=== PATIENT | female | born 1955 | race Caucasian/White ===

== ENCOUNTER 2016-11-19 08:30 | Inpatient (IN) | payer MEDICARE, OTHER ==
[2016-11-19] VITALS (19 sets, daily range): BP systolic 78–123; BP diastolic 46–59; PULSE 69–111; RESP 14–33; TEMP 102.2–103.7; O2SAT 91–100
[~2016-11-19] VITALS: Ht 162.6 cm; Wt 88.3 kg
[~2016-11-19 08:30] MED LIST: CRES20TA PO; DILA2INJ IT; HYDR-2768 PO; LEVO137T2 PO; LEXA20TA PO; LYRI200C PO; MILN100 PO; MSIR15 PO; MULT1CHW PO; PROV200T11 PO; VALI10TA PO
--- NOTE | 2016-11-19 08:41 | PD ---
HPI Chief Complaint: altered mental status Time Seen by Provider: 08:32 Travel History International Travel<30 days: No Contact w/Intl Traveler<30days: No Traveled to known affect area: No History of Present Illness HPI 61-year-old female with history of chronic pain, pain pump, recent pneumonia, otherwise unknown medical history, presents to the ER today brought in by EMS because her states that he woke up this morning finding her disoriented , and when EMS got there, she was given Narcan due to pain pump, they states that her GCS improved slightly but otherwise, she was still fairly disoriented. Patient is not able to give me any further history. Patient's states that she was admitted to [facility] 3 weeks ago and had been admitted for 4 days for pneumonia. Modifying Factors: None Associated Signs & Symptoms: Altered mental status Risk Factors: On pain pump, recent pneumonia PFSH Past Medical History Cancer: No Cardiovascular Problems: No Diabetes: No Endocrine: Yes Genitourinary: No Hepatitis: No Hiatal Hernia: No Immune Disorder: Yes (FIBROMYALGIA) Musculoskeletal: Yes (FIBROMYALGIA, ARTHRITIS) Neurologic: Yes (NEUROPATHY HANDS/ FEET) Psychiatric: Yes (ANXIETY) Respiratory: No Thyroid Disease: Yes Past Surgical History Abdominal Surgery: Yes (LAP ANTOLIN, LAP BAND) AICD: No Body Medical Devices: PAIN PUMP, LAP BAND PORT Joint Replacement: No Pacemaker: No Social History Tobacco Use: No Substance Use: No Allergies-Medications (Allergen,Severity, Reaction): Coded Allergies: Sulfa (Unverified Allergy, Severe, HIVES, 04/11/15) Adhesives (Verified Allergy, Intermediate, Rash, 11/19/16) TEGADERM Keflex (Verified Allergy, Intermediate, Itching, 11/19/16) Reported Meds & Prescriptions Reported Meds & Active Scripts Active Reported Dilaudid Liq (Hydromorphone HCl) 1 Mg/Ml Liq 1 Mg PO Q4H PRN Dilaudid Liq (Hydromorphone HCl) 1 Mg/Ml Liq 1 Mg PO Q4H PRN Lexapro (Escitalopram Oxalate) 20 Mg Tab 20 Mg PO DAILY Torsemide 20 Mg Tab 20 Mg PO BID Diazepam 10 Mg Tab 10 Mg PO TID PRN Crestor (Rosuvastatin Calcium) 20 Mg Tab 20 Mg PO DAILY Movantik (Naloxegol) 12.5 Mg Tab 12.5 Mg PO DAILY Levothyroxine (Levothyroxine Sodium) 150 Mcg Tab 150 Mcg PO DAILY Modafinil 200 Mg Tab 200 Mg PO BID Lyrica (Pregabalin) 200 Mg Cap 200 Mg PO BID Review of Systems ROS Limitations: Altered Mental Status Physical Exam Narrative GENERAL: Well-nourished, well-developed middle age white female patient who is disoriented, lethargic, unable to give further history. SKIN: Warm and dry. HEAD: Normocephalic. EYES: No scleral icterus. No injection or drainage. Pupils are equal, round, large, and reactive to light bilaterally. NECK: Supple, trachea midline. CARDIOVASCULAR: Regular rate and rhythm without murmurs, gallops, or rubs. RESPIRATORY: Breath sounds equal bilaterally. No accessory muscle use. No crackles, wheezes, or rhonchi. GASTROINTESTINAL: Abdomen soft, non-tender, nondistended. MUSCULOSKELETAL: No cyanosis, or edema. BACK: Nontender without obvious deformity. No CVA tenderness. Neuro: Lethargic, disoriented, not able to follow directions or answer any questions currently. Data Data Last Documented VS Vital Signs Date Time Temp Pulse Resp B/P Pulse Ox O2 Delivery O2 Flow Rate FiO2 11/19/16 11:00 89 21 103/51 98 Non-Rebreather 15 11/19/16 08:54 103.7 Orders Electrocardiogram (11/19/16 08:35) Alcohol (Ethanol) (11/19/16 08:35) Ammonia (11/19/16 08:35) Complete Blood Count With Diff (11/19/16 08:35) Comprehensive Metabolic Panel (11/19/16 08:35) Drug Screen, Random Urine (11/19/16 08:35) Prothrombin Time / Inr (Pt) (11/19/16 08:35) Act Partial Throm Time (Ptt) (11/19/16 08:35) Troponin I (11/19/16 08:35) Thyroid Stimulating Hormone (11/19/16 08:35) Lactic Acid Sepsis Protocol (11/19/16 08:35) Urinalysis - C+S If Indicated (11/19/16 08:35) Blood Culture (11/19/16 08:35) Chest, Single Ap (11/19/16 08:35) Ct Brain W/O Iv Contrast(Rout) (11/19/16 08:35) Blood Glucose (11/19/16 08:35) Ecg Monitoring (11/19/16 08:35) Iv Access Insert/Monitor (11/19/16 08:35) Cath For Specimen (11/19/16 08:35) Oximetry (11/19/16 08:35) Sodium Chloride 0.9% Flush (Ns Flush) (11/19/16 08:45) Sodium Chlor 0.9% 1000 Ml Inj (Ns 1000 M (11/19/16 10:00) Aztreonam Inj (Azactam Inj) (11/19/16 09:52) Levofloxacin 750 Mg Premix Inj (Levaquin (11/19/16 09:52) B-Type Natriuretic Peptide (11/19/16 09:54) Ns + Kcl 20 Meq Inj (Ns + Kcl 20 Meq Inj (11/19/16 11:00) Labs Laboratory Tests Test 11/19/16 11/19/16 08:50 09:00 White Blood Count 5.1 TH/MM3 Red Blood Count 5.13 MIL/MM3 Hemoglobin 13.4 GM/DL Hematocrit 40.1 % Mean Corpuscular Volume 78.1 FL Mean Corpuscular Hemoglobin 26.1 PG Mean Corpuscular Hemoglobin 33.4 % Concent Red Cell Distribution Width 16.4 % Platelet Count 146 TH/MM3 Mean Platelet Volume 9.9 FL Neutrophils (%) (Auto) 81.9 % Lymphocytes (%) (Auto) 11.2 % Monocytes (%) (Auto) 6.2 % Eosinophils (%) (Auto) 0.6 % Basophils (%) (Auto) 0.1 % Neutrophils # (Auto) 4.2 TH/MM3 Lymphocytes # (Auto) 0.6 TH/MM3 Monocytes # (Auto) 0.3 TH/MM3 Eosinophils # (Auto) 0.0 TH/MM3 Basophils # (Auto) 0.0 TH/MM3 CBC Comment AUTO DIFF Differential Total Cells 100 Counted Neutrophils % (Manual) 70 % Band Neutrophils % 10 % Lymphocytes % 13 % Monocytes % 7 % Neutrophils # (Manual) 4.1 TH/MM3 Differential Comment FINAL DIFF MANUAL Platelet Estimate LOW Platelet Morphology Comment NORMAL Basophilic Stippling FAINT Red Cell Morphology Comment NORMAL Prothrombin Time 11.4 SEC Prothromb Time International 1.0 RATIO Ratio Activated Partial 23.3 SEC Thromboplast Time Sodium Level 132 MEQ/L Potassium Level 2.6 MEQ/L Chloride Level 84 MEQ/L Carbon Dioxide Level 37.3 MEQ/L Anion Gap 11 MEQ/L Blood Urea Nitrogen 24 MG/DL Creatinine 1.14 MG/DL Estimat Glomerular Filtration 49 ML/MIN Rate Random Glucose 253 MG/DL Lactic Acid Level 3.7 mmol/L Calcium Level 8.9 MG/DL Total Bilirubin 0.8 MG/DL Aspartate Amino Transf 54 U/L (AST/SGOT) Alanine Aminotransferase 27 U/L (ALT/SGPT) Alkaline Phosphatase 86 U/L Ammonia 25 MCMOL/L Troponin I LESS THAN 0.02 NG/ML B-Type Natriuretic Peptide 24 PG/ML Total Protein 7.5 GM/DL Albumin 3.6 GM/DL Thyroid Stimulating Hormone 0.263 uIU/ML 3rd Gen Ethyl Alcohol Level LESS THAN 3 MG/DL Urine Color YELLOW Urine Turbidity CLEAR Urine pH 5.5 Urine Specific [place] 1.015 Urine Protein TRACE mg/dL Urine Glucose (UA) TRACE mg/dL Urine Ketones NEG mg/dL Urine Occult Blood NEG Urine Nitrite NEG Urine Bilirubin NEG Urine Urobilinogen LESS THAN 2.0 MG/DL Urine Leukocyte Esterase NEG Urine WBC 1 /hpf Urine Hyaline Casts 11 /lpf Urine Mucus FEW /lpf Microscopic Urinalysis Comment CATH-CULT NOT IND Urine Opiates Screen POS Urine Barbiturates Screen NEG Urine Amphetamines Screen NEG Urine Benzodiazepines Screen POS Urine Cocaine Screen NEG Urine Cannabinoids Screen NEG MDM Medical Decision Making Medical Screen Exam Complete: Yes Emergency Medical Condition: Yes Medical Record Reviewed: Yes Interpretation(s) EKG shows sinus tachycardia at a rate of 110 bpm with no signs of acute ST-T changes. Laboratory Tests Test 11/19/16 11/19/16 08:50 09:00 Mean Corpuscular Volume 78.1 FL (80.0-100.0) Mean Corpuscular Hemoglobin 26.1 PG (27.0-34.0) Platelet Count 146 TH/MM3 (150-450) Neutrophils (%) (Auto) 81.9 % (16.0-70.0) Lymphocytes # (Auto) 0.6 TH/MM3 (1.0-4.8) Band Neutrophils % 10 % (0-6) Platelet Estimate LOW (NORMAL) Basophilic Stippling FAINT (NORMAL) Activated Partial 23.3 SEC Thromboplast Time (24.3-30.1) Sodium Level 132 MEQ/L (136-145) Potassium Level 2.6 MEQ/L (3.5-5.1) Chloride Level 84 MEQ/L (98-107) Carbon Dioxide Level 37.3 MEQ/L (21.0-32.0) Blood Urea Nitrogen 24 MG/DL (7-18) Creatinine 1.14 MG/DL (0.50-1.00) Estimat Glomerular Filtration 49 ML/MIN (>89) Rate Random Glucose 253 MG/DL (74-106) Lactic Acid Level 3.7 mmol/L (0.4-2.0) Aspartate Amino Transf 54 U/L (15-37) (AST/SGOT) Troponin I LESS THAN 0.02 NG/ML (0.02-0.05) Thyroid Stimulating Hormone 0.263 uIU/ML 3rd Gen (0.358-3.740) Urine Mucus FEW /lpf (OCC) Urine Opiates Screen POS (NEG) Urine Benzodiazepines Screen POS (NEG) Last [address] 11/19/16 0835 Signed Impressions: Service Date/Time: Saturday, November 19, 2016 10:03 - CONCLUSION: Negative exam. Brenton Underwood MD Differential Diagnosis Altered mental statusmetabolic issues versus opiate overdose versus medication side effects versus acute intracranial bleeding versus CVA versus sepsis Narrative Course Patient has an elevated temperature and sepsis protocol was initiated. IV antibiotics were given after cultures are drawn. IV fluids were initiated. BNP is negative although chest x-ray shows questionable CHF. I am questioning whether there could be a bilateral pneumonia in this case. Lactate is elevated. Patient was given O2 in the ER. Patient had been given Narcan by EMS without significant improvement in mental status. At this point, there is also possibility of an overdose. My plan would be to admit the patient for further evaluation and treatment in the ICU especially considering the disorientation. CT did not show any signs of acute intercranial processes. Case is discussed with Dr. Parmar for admission. Aggregate critical care time was 30 minutes. Time to perform other separately billable procedures was not included in the critical care time. My time did not include minutes spent treating any other patients simultaneously or on activities that did not directly contribute to the patient's treatment. The services I provided to this patient were to treat and/or prevent clinically significant deterioration that could result in: Worsening sepsis, respiratory failure, I provided critical care services requiring my management, as noted below: Chart data review, documentation time, medication orders and management, vital sign assessments/reviewing monitor data, ordering and reviewing lab tests, ordering and interpreting/reviewing x-rays and diagnostic studies, care of the patient and discussion of the patient with the admitting physicians. Sepsis Criteria SIRS Criteria (2 or more): Temp > 100.9 or < 96.8, Heart rate over 90, RR > 20 or PaCO2 < 32 Severe Sepsis (+one): Lactate >2 Criteria Outcome: Meets severe sepsis criteria Diagnosis Primary Impression: ALTERED MENTAL STATUS, UNSPECIFIED Additional Impression: SEVERE SEPSIS WITHOUT SEPTIC SHOCK Admitting Information Admitting Physician Requests: Admit Jackson Schrader MD Nov 19, 2016 08:41
[2016-11-19] MEDS ORDERED: SODIUM CHLORIDE 0.9% FLUSH 5 ML FLUSH IVF PRN ×2 (08:45→22:00)
--- NOTE | 2016-11-19 09:03 | RADRPT ---
EXAM DATE/TIME: 11/19/2016 08:44 [facility] COMPARISON: No previous studies available for comparison. INDICATIONS: Shortness of breath. MEDICAL HISTORY: None. SURGICAL HISTORY: None. ENCOUNTER: Initial ACUITY: 1 day PAIN SCORE: 0/10 LOCATION: Bilateral chest FINDINGS: There is moderate congestive failure evident. Heart is enlarged. There is no pleural effusion or pn eumothorax. CONCLUSION: 1. Moderate congestive failure. 2. Moderate cardiomegaly. Star Harris MD FACR on November 19, 2016 at 8:57 Board Certified Radiologist. This report was verified electronically.
[2016-11-19] MEDS ORDERED: MODA200T12 PO (09:20)
[2016-11-19] MEDS ORDERED: ROSU20 PO (09:20)
[2016-11-19] MEDS ORDERED: LEVO150T7 PO (09:20)
[2016-11-19] MEDS ORDERED: LYRI200C PO (09:20)
[2016-11-19] MEDS ORDERED: DIAZ10TA PO (09:20)
[2016-11-19] MEDS ORDERED: NALO1TAB PO (09:20)
[2016-11-19] MEDS ORDERED: TORS20TA PO (09:20)
[2016-11-19] MEDS ORDERED: LEXA20TA PO (09:20)
[2016-11-19] MEDS ORDERED: DILA1LIQ PO (09:20)
[2016-11-19 09:24] LABS: AUTOMATED NEUTROPHIL # 4.2 TH/MM3 (1.8-7.7); BASOPHIL % 0.1 % (0.0-2.0); EOSINOPHIL % 0.6 % (0.0-4.0); HEMATOCRIT 40.1 % (35.0-46.0); LYMPH % 11.2 % (9.0-44.0); LYMPHOCYTE # 0.6 TH/MM3 (1.0-4.8); MEAN CELL VOLUME 78.1 FL (80.0-100.0); MEAN CORPUSCULAR HEMOGLOBIN 26.1 PG (27.0-34.0); MEAN CORPUSCULAR HGB CONC 33.4 % (32.0-36.0); MONO % 6.2 % (0.0-8.0); NEUT % 81.9 % (16.0-70.0); PLATELET COUNT 146 TH/MM3 (150-450); RED BLOOD COUNT 5.13 MIL/MM3 (4.00-5.30); RED CELL DISTRIBUTION WIDTH 16.4 % (11.6-17.2); WHITE BLOOD COUNT 5.1 TH/MM3 (4.0-11.0)
[2016-11-19 09:27] LABS: HEMO FLAGS AUTO DIFF
[2016-11-19 09:32] LABS: BLOOD, URINE NEG (NEG); COMMENT (UR) CATH-CULT NOT IND; CULTURE IF INDICATED CATH CULTURE NOT IND; GLUCOSE,URINE TRACE mg/dL (NEG); HYALINE CAST, URINE 11 /lpf (RARE); KETONE, URINE NEG (NEG); MUCUS URINE FEW /lpf (OCC); NITRITE,URINE NEG (NEG); PH, URINE 5.5 (5.0-8.5); URINE COLOR YELLOW (YELLW/STRAW)
[2016-11-19 09:34] LABS: APTT (PATIENT) 23.3 SEC (24.3-30.1); PROTHROMBIN TIME - PATIENT 11.4 SEC (9.8-11.6)
[2016-11-19 09:35] LABS: AMPHETAMINE, URINE NEG (NEG); BARBITURATES, URINE NEG (NEG); COCAINE, URINE NEG (NEG)
[2016-11-19] MEDS ORDERED: LEVOFLOXACIN 750 MG PREMIX INJ 150 ML IV STA (09:52)
[2016-11-19] MEDS ORDERED: AZTREONAM INJ 2,000 MG in SODIUM CHLORIDE 0.9% INJ 100 ML IV STA (09:52)
[2016-11-19 09:57] LABS: BANDS 10 % (0-6); NEUTROPHIL # MANUAL DIFF 4.1 TH/MM3 (1.8-7.7); POLYS (SEG NEUTROPHILS) 70 % (16-70); WBC DIFF SAMPLE 100
[2016-11-19 09:58] LABS: PLATELET ESTIMATE SMEAR LOW (NORMAL); PLATELET MORPHOLOGY NORMAL (NORMAL); SCAN/DIFF FINAL DIFF MANUAL
[2016-11-19] MEDS ORDERED: SODIUM CHLOR 0.9% 1000 ML INJ 1,000 ML IV ONE ×3 (10:00→17:45)
--- NOTE | 2016-11-19 10:19 | RADRPT ---
EXAM DATE/TIME: 11/19/2016 10:03 [facility] COMPARISON: No previous studies available for comparison. INDICATIONS : Altered mental status. RADIATION DOSE: 34.07 CTDIvol (mGy) MEDICAL HISTORY : Hypertension. SURGICAL HISTORY : None. ENCOUNTER: Initial ACUITY: 1 day PAIN SCALE: Non-responsive LOCATION: cranial TECHNIQUE: Multiple contiguous axial images were obtained of the head. Using automated exposure control and adj ustment of the mA and/or kV according to patient size, radiation dose was kept as low as reasonably a chievable to obtain optimal diagnostic quality images. FINDINGS: CEREBRUM: The ventricles are normal for age. No evidence of midline shift, mass lesion, hemorrhage or acute in farction. No extra-axial fluid collections are seen. POSTERIOR FOSSA: The cerebellum and brainstem are intact. The 4th ventricle is midline. The cerebellopontine angle i s unremarkable. EXTRACRANIAL: The visualized portion of the orbits is intact. SKULL: The calvaria is intact. No evidence of skull fracture. CONCLUSION: Negative exam. Brenton Underwood MD on November 19, 2016 at 10:16 Board Certified Radiologist. This report was verified electronically.
[2016-11-19 10:33] LABS: BLOOD UREA NITROGEN 24 MG/DL (7-18); GLOMERULAR FILTRATION RATE 49 ML/MIN (>89)
[2016-11-19 10:34] LABS: ALKALINE PHOSPHATASE 86 U/L (45-117); ALT (GPT) 27 U/L (10-53); ANION GAP 11 MEQ/L (5-15); AST (GOT) 54 U/L (15-37); BICARBONATE 37.3 MEQ/L (21.0-32.0); CHLORIDE 84 MEQ/L (98-107); SODIUM (NA) 132 MEQ/L (136-145); TOTAL BILIRUBIN ADULT 0.8 MG/DL (0.2-1.0)
[2016-11-19 10:40] LABS: POTASSIUM 2.6 MEQ/L (3.5-5.1)
[2016-11-19] MEDS ORDERED: NS + KCL 20 MEQ INJ 1,000 ML IV ONE (11:00)
[2016-11-19 11:15] LABS: LACTIC ACID GHOST NOT REPORTABLE
[2016-11-19] MEDS ORDERED: MISCELLANEOUS NURSING INFORMATION XX SCH (11:15)
[2016-11-19] MEDS ORDERED: VANCOMYCIN INJ 1,000 MG in SODIUM CHLOR 0.9% 250 ML INJ 250 ML IV ONE (11:15)
[2016-11-19] MEDS ORDERED: SODIUM CHLORIDE 0.9% FLUSH 5 ML FLUSH IV FLUSH PRN (11:15)
[2016-11-19] MEDS ORDERED: CHLORHEXIDINE GLUCONATE 2 % 1 PACK (2 CLOTHS) TOP PRN (11:15)
[2016-11-19] MEDS ORDERED: Vancomycin Consult Pharmacy 1 EA OTHER SCH (11:15)
[2016-11-19] MEDS: RESP: ALBUTEROL 2.5 MG/IPRATROPIUM 0.5 MG NEB (PRN) INH (12:00)
[2016-11-19] MEDS: metroNIDAZOLE 500 MG INJ 100 ML IV SCH ×2 (12:29→20:05)
[2016-11-19] MEDS ORDERED: VANCOMYCIN INJ 2,000 MG in SODIUM CHLORID 0.9% 500 ML INJ 500 ML IV ONE (12:30)
[2016-11-19] MEDS ORDERED: DEXTROSE 50% IN WATER 50 ML VIAL(D50) IV PRN (13:30)
[2016-11-19] MEDS ORDERED: GLUCAGON 1 MG/ML VIAL IM/SQ PRN (13:30)
--- NOTE | 2016-11-19 13:37 | HHI.HP ---
[facility] Service Critical Care Medicine Primary Care Physician Kailash Hurst MD Admission Diagnosis severe sepsis/altered mental status Diagnosis: Travel History International Travel<30 Days: No Contact w/Intl Traveler <30 Da: No Traveled to Known Affected Are: No History of Present Illness HPI 61-year-old female with history of chronic pain, pain pump, recent pneumonia, otherwise unknown medical history, presents to the ER today brought in by EMS because her states that he woke up this morning finding her disoriented and difficult to arouse, when EMS got there she was given Narcan due to pain pump, they states that her GCS improved slightly but otherwise, she was still fairly disoriented. Patient's states that she was admitted to [facility] 3 weeks ago and had been admitted for 4 days for pneumonia and had been subsequently discharged. Since her discharge she has been seen by Dr. Terrance Brock her pulmonary physician. Per patient's she has had problems with drowsiness and lethargy for a few months however today she was much worse than usual. She has seen multiple neurologists previously for her fibromyalgia including Dr. Nicole , Dr. Soto and Dr. Mcclain who they no longer wished to see. Patient sees Dr. Hernandez for her Dilaudid pain pump and per patient's she receives prescriptions for hydrocodone though he does not believe she uses a lot. Patient is also on diazepam. On arrival in the ER patient had a temperature of 103 and was extremely encephalopathic. She was placed on a nonrebreather facemask and initiated on empiric antibiotics as her chest x-ray revealed infiltrates and she had an elevated lactic acid. She did receive a liter fluid bolus earlier. When I evaluated the patient she was laying in the ER stretcher was drowsy but easily arousable and actually could converse with me. She knew she was in the hospital however did not know which one. She denied any headache or visual disturbance. She did complain of having a cough of late. Most of the history was obtained from the as patient was still very drowsy. History PFSH Past Medical History Cancer: No Cardiovascular Problems: No Diabetes: No Endocrine: Yes Genitourinary: No Hepatitis: No Hiatal Hernia: No Immune Disorder: Yes (FIBROMYALGIA) Musculoskeletal: Yes (FIBROMYALGIA, ARTHRITIS) Neurologic: Yes (NEUROPATHY HANDS/ FEET) Psychiatric: Yes (ANXIETY) Respiratory: No Thyroid Disease: Yes Past Surgical History Abdominal Surgery: Yes (LAP ANTOLIN, LAP BAND) AICD: No Body Medical Devices: PAIN PUMP, LAP BAND PORT Joint Replacement: No Pacemaker: No Social History Tobacco Use: No Substance Use: No Allergies-Medications Allergies-Medications (Allergen,Severity, Reaction): Coded Allergies: Sulfa (Unverified Allergy, Severe, HIVES, 04/11/15) Adhesives (Verified Allergy, Intermediate, Rash, 11/19/16) TEGADERM Keflex (Verified Allergy, Intermediate, Itching, 11/19/16) Reported Meds & Prescriptions Reported Meds & Active Scripts Active Reported Dilaudid Liq (Hydromorphone HCl) 1 Mg/Ml Liq 1 Mg PO Q4H PRN Dilaudid Liq (Hydromorphone HCl) 1 Mg/Ml Liq 1 Mg PO Q4H PRN Lexapro (Escitalopram Oxalate) 20 Mg Tab 20 Mg PO DAILY Torsemide 20 Mg Tab 20 Mg PO BID Diazepam 10 Mg Tab 10 Mg PO TID PRN Crestor (Rosuvastatin Calcium) 20 Mg Tab 20 Mg PO DAILY Movantik (Naloxegol) 12.5 Mg Tab 12.5 Mg PO DAILY Levothyroxine (Levothyroxine Sodium) 150 Mcg Tab 150 Mcg PO DAILY Modafinil 200 Mg Tab 200 Mg PO BID Lyrica (Pregabalin) 200 Mg Cap 200 Mg PO BID ROS Review of Systems ROS Limitations: Altered Mental Status Physical Exam Vital Signs Vital Signs Date Time Temp Pulse Resp B/P Pulse Ox O2 Delivery O2 Flow Rate FiO2 11/19/16 12:05 98 BiPAP 11/19/16 12:00 91 Non-Rebreather 10.00 100 11/19/16 11:49 92 Venturi Mask 6.00 50 11/19/16 11:30 102.2 92 28 96/51 92 Venturi Mask 6 40 11/19/16 11:00 89 21 103/51 98 Non-Rebreather 15 11/19/16 08:54 103.7 33 98 Non-Rebreather 15 11/19/16 08:32 111 33 123/59 Physical Exam Narrative GENERAL: Well-nourished, well-developed middle age white female patient laying in bed, drowsy but easily arousable SKIN: Warm and dry. HEAD: Normocephalic. EYES: No scleral icterus. No injection or drainage. Pupils are equal, round, large, and reactive to light bilaterally. NECK: Supple, trachea midline. CARDIOVASCULAR: Regular rate and rhythm without murmurs, gallops, or rubs. RESPIRATORY: Breath sounds equal bilaterally. No accessory muscle use. Scattered rhonchi/crackles, no wheezing. GASTROINTESTINAL: Abdomen soft, non-tender, nondistended. MUSCULOSKELETAL: No cyanosis, or edema. BACK: Nontender without obvious deformity. No CVA tenderness. Neuro: Drowsy, easily arousable, recognizes and answers appropriately, follows simple commands. Speech appears normal. She knows she is at the hospital. Laboratory Laboratory Tests Test 11/19/16 11/19/16 11/19/16 08:50 09:00 10:50 White Blood Count 5.1 Red Blood Count 5.13 Hemoglobin 13.4 Hematocrit 40.1 Mean Corpuscular Volume 78.1 Mean Corpuscular Hemoglobin 26.1 Mean Corpuscular Hemoglobin 33.4 Concent Red Cell Distribution Width 16.4 Platelet Count 146 Mean Platelet Volume 9.9 Neutrophils (%) (Auto) 81.9 Lymphocytes (%) (Auto) 11.2 Monocytes (%) (Auto) 6.2 Eosinophils (%) (Auto) 0.6 Basophils (%) (Auto) 0.1 Neutrophils # (Auto) 4.2 Lymphocytes # (Auto) 0.6 Monocytes # (Auto) 0.3 Eosinophils # (Auto) 0.0 Basophils # (Auto) 0.0 CBC Comment AUTO DIFF Differential Total Cells 100 Counted Neutrophils % (Manual) 70 Band Neutrophils % 10 Lymphocytes % 13 Monocytes % 7 Neutrophils # (Manual) 4.1 Differential Comment FINAL DIFF MANUAL Platelet Estimate LOW Platelet Morphology Comment NORMAL Basophilic Stippling FAINT Red Cell Morphology Comment NORMAL Prothrombin Time 11.4 Prothromb Time International 1.0 Ratio Activated Partial 23.3 Thromboplast Time Sodium Level 132 Potassium Level 2.6 Chloride Level 84 Carbon Dioxide Level 37.3 Anion Gap 11 Blood Urea Nitrogen 24 Creatinine 1.14 Estimat Glomerular Filtration 49 Rate Random Glucose 253 Lactic Acid Level 3.7 3.3 Calcium Level 8.9 Total Bilirubin 0.8 Aspartate Amino Transf 54 (AST/SGOT) Alanine Aminotransferase 27 (ALT/SGPT) Alkaline Phosphatase 86 Ammonia 25 Troponin I LESS THAN 0.02 B-Type Natriuretic Peptide 24 Total Protein 7.5 Albumin 3.6 Thyroid Stimulating Hormone 0.263 3rd Gen Ethyl Alcohol Level LESS THAN 3 Urine Color YELLOW Urine Turbidity CLEAR Urine pH 5.5 Urine Specific Anthony 1.015 Urine Protein TRACE Urine Glucose (UA) TRACE Urine Ketones NEG Urine Occult Blood NEG Urine Nitrite NEG Urine Bilirubin NEG Urine Urobilinogen LESS THAN 2.0 Urine Leukocyte Esterase NEG Urine WBC 1 Urine Hyaline Casts 11 Urine Mucus FEW Microscopic Urinalysis Comment CATH-CULT NOT IND Urine Opiates Screen POS Urine Barbiturates Screen NEG Urine Amphetamines Screen NEG Urine Benzodiazepines Screen POS Urine Cocaine Screen NEG Urine Cannabinoids Screen NEG Date/Time Procedure Status Source Growth 11/19/16 08:55 Aerobic Blood Culture Received Blood Peripheral Pending 11/19/16 08:55 Anaerobic Blood Culture Received Blood Peripheral Pending Result Diagram: 11/19/1650 11/19/1650 Imaging : CXR(portable): Personally reviewed - bilateral interstitial infiltrates. Last Impressions Head CT 11/19/16 0835 Signed Impressions: Service Date/Time: Saturday, November 19, 2016 10:03 - CONCLUSION: Negative exam. Brenton Underwood MD Septic Shock Reassessment Heart: Regular rate and rhythm Skin: Warm Peripheral Pulses: Bounding Right Radial Capillary Refill: Brisk Assessment and Plan Assessment and Plan 61-year-old female with: Encephalopathy : Probably multifactorial secondary to sepsis/medication including diazepam/narcotics/ possible CO2 retention. Sepsis Suspected pneumonia Hypotension Hyperlactatemia Hyperglycemia Chronic pain Fibromyalgia Morbid obesity Plan: Neuro: Head CT negative. Suspect multifactorial etiology of encephalopathy including medications/delirium/elevated PCO2. Check EEG and ABG. Neuro status already starting to improve following arrival in the ER. Cardiovascular: Aggressive fluid resuscitation. BNP is not elevated. Suspect infiltrate secondary to pneumonia rather than CHF. Second liter and S bolus ordered, continue maintenance IV fluid, watch for hypotension. Serial lactic acid per sepsis protocol. Pulmonary: Switched from nonrebreather facemask to 50% Ventimask. Will use BiPAP when necessary. Check ABG. Consult pulmonary Dr. Michaud who patient's Gisella follows her as outpatient and has recently evaluated her following her discharge. GI/liver: Patient was kept nothing by mouth however if neuro status improves will advance diet as tolerated. Renal/: IV hydration, strict intake output, monitor and replete electro lites , follow BUN/creatinine ID: Follow-up blood cultures. Empiric antibiotic coverage with IV Levaquin/ Azactam/Flagyl/vancomycin. Check nasal washings for influenza A and B. Check urine for strep pneumo and Legionella antigen. We'll obtain discharge summary from recent hospitalization at [facility]. Endocrine: Hyperglycemia noted. Starting sliding scale insulin for glycemic control. Check hemoglobin A1c. Low TSH noted. Heme: Follow CBC Prophylaxis: PPI/SCDs/Lovenox Discussed current clinical status and plan of care with patient's at bedside worst understanding and was agreeable. If respiratory status declines will trial BiPAP. Condition critical. Time spent on critical care excluding procedures 60 minutes Lloyd Parmar MD Nov 19, 2016 13:37
[2016-11-19 13:44] LABS: BLOOD GAS BASE EXCESS 12.9 mmol/L (-2-2); BLOOD GAS CARBOXYHEMOGLOBIN 2.3 % (0-4); BLOOD GAS HCO3 38 mmol/L (22-26); BLOOD GAS METHEMOGLOBIN 1.8 % (0-2); BLOOD GAS O2 HGB SATURATION 92 % (90-100); BLOOD GAS OXYGEN CONTENT 14.6 Vol % (12.0-20.0); BLOOD GAS PCO2 60 mmHg (38-42); BLOOD GAS PO2 78 mmHG (61-120); BLOOD GAS TOTAL HGB 11.2 G/DL (12.0-16.0); CRITICAL VALUE YES; TEMP CORR TO 98.6
[2016-11-19 13:45] LABS: DRAW SITE LT RADIAL; FIO2 60 %; NUMBER OF ARTERIAL PUNCTURES 1; OXYGEN DEVICE NPPV; STAT YES; ULNAR PULSE PRESENT; VENT SETTINGS IPAP12/EPAP5
[2016-11-19] MEDS ORDERED: POTASSIUM CHLOR 20 MEQ PREMIX 100 ML IV ONE (14:00)
[2016-11-19] MEDS ORDERED: POTASSIUM CL 40 MEQ/30 ML LIQ UDC PO ONE (14:00)
[2016-11-19 14:15] LABS: HEMOGLOBIN A1a 1.1 %; HEMOGLOBIN A1b 2.4 %; HEMOGLOBIN Ao 81.2 %; HEMOGLOBIN LA1C 2.9 %; HEMOGLOBIN P3 4.5 %
[2016-11-19] MEDS: INSULIN ASPART SUPPLEMENTAL SCALE SQ SCH ×2 (14:41→18:26)
[2016-11-19] MEDS ORDERED: RESP: ALBUTEROL 2.5 MG/IPRATROPIUM 0.5 MG NEB (SCH) INH (16:00)
--- NOTE | 2016-11-19 16:44 | MG ---
cc: SWATHI DELAROSA Lab No: Date: 11/19/2016 Age: Sex: F Race: TEST NUMBER [id number] Urgent electroencephalogram. Hyperventilation not performed. Object fell on her head. Tried to wake her up, she was coughing, unresponsive. Neuropathy. Fibromyalgia. Anxiety. MEDICATIONS 1. Vancomycin. 2. Levaquin. DESCRIPTION Diffuse 7 Hz rhythm is noted. Some muscle artifact is seen. Left shoulder twitch is seen which does not correlate with any seizure activity. Some what appears to be sleep spindles are noted. The patient appears to be in stage II sleep with some sleep spindles which is symmetric and occasional vertex sharp wave. Some delta slowing is occasionally noted in sleep also. Photic stimulation is performed without significant posterior driving. IMPRESSION Some diffuse theta slowing consistent with a mild diffuse encephalopathy. No focal abnormalities noted. No seizure activity was seen. Some mild diffuse theta slowing was seen consistent with a mild diffuse encephalopathy. One left shoulder twitch was seen which did not correlate with any seizure activity. Clinical correlation is needed. MD ERVIN Cedeño/LINDA /4:25 PM /4:32 PM
[2016-11-19] MEDS: AZTREONAM INJ 2,000 MG in SODIUM CHLORIDE 0.9% INJ 100 ML IV SCH (18:15)
[2016-11-19] MEDS: SODIUM CHLOR 0.9% 1000 ML INJ 1,000 ML IV SCH ×2 (18:15→21:05)
--- NOTE | 2016-11-19 20:02 | EC ---
Study Study Date:11/19/2016 STUDY CONCLUSIONS SUMMARY LEFT VENTRICLE: The cavity size was normal. Wall thickness was normal. Systolic function was normal. The estimated ejection fraction was in the range of 60% to 65%. Wall motion was normal; there were no regional wall motion abnormalities. If LV function is below 40, please consider prescribing an ACEI or ARB or document rationale for non-use. PROCEDURE DATA STUDY STATUS: Elective. Procedure: Transthoracic echocardiography. Image quality was good. Scanning was performed from the parasternal, apical, and subcostal acoustic windows. Study completion: The patient tolerated the procedure well. Transthoracic echocardiography. M-mode, complete 2D, complete spectral Doppler, and color Doppler. Patient status: Inpatient. CARDIAC ANATOMY LEFT VENTRICLE: The cavity size was normal. Wall thickness was normal. Systolic function was normal. The estimated ejection fraction was in the range of 60% to 65%. Wall motion was normal; there were no regional wall motion abnormalities. AORTIC VALVE: Trileaflet; normal thickness leaflets. Doppler: Transvalvular velocity was within the normal range. There was no stenosis. No regurgitation. Mean gradient: 9mm Hg (S). Peak gradient: 20mm Hg (S). AORTA: Aortic root: The aortic root was normal in size. MITRAL VALVE: Structurally normal valve. Doppler: Transvalvular velocity was within the normal range. There was no evidence for stenosis. No regurgitation. Peak gradient: 3mm Hg (D). LEFT ATRIUM: The atrium was normal in size. RIGHT VENTRICLE: The cavity size was normal. Wall thickness was normal. PULMONIC VALVE: Doppler: Transvalvular velocity was within the normal range. There was no evidence for stenosis. No regurgitation. TRICUSPID VALVE: Structurally normal valve. Doppler: Transvalvular velocity was within the normal range. Trace regurgitation. PULMONARY ARTERY: The main pulmonary artery was normal-sized. Systolic pressure was within the normal range. RIGHT ATRIUM: The atrium was normal in size. PERICARDIUM: There was no pericardial effusion. BASIC MEASUREMENTS ADULT NORMAL Left ventricle LV internal dimension, ED, chordal level, 44.3 mm 43-52 PLAX LV internal dimension, ES, chordal level, 34 mm 23-38 PLAX Fractional shortening, chordal level, PLAX *23 % >29 LV posterior wall thickness, ED 7.01 mm IVS/LVPW ratio, ED 1.22 <1.3 Ventricular septum Septal thickness, ED 8.55 mm Aortic valve Leaflet separation 21 mm 15-26 Left atrium Anterior-posterior dimension 35 mm Right ventricle RV internal dimension, ED, PLAX 23.2 mm 19-38 BASIC MEASUREMENTS ADULT NORMAL Aortic valve Leaflet separation 21 mm 15-26 Aorta Root diameter, ED 32 mm 20-37 DOPPLER MEASUREMENTS ADULT NORMAL Aortic valve Peak velocity, S 222 cm/s Mean velocity, S 135 cm/s VTI, S 38.9 cm Mean gradient, S 9 mm Hg Peak gradient, S 20 mm Hg Mitral valve Peak E-wave velocity 79.6 cm/s Peak A-wave velocity 100 cm/s Peak gradient, D 3 mm Hg Peak E/A ratio 0.8 Tricuspid valve Regurgitant peak velocity 232 cm/s Peak RV-RA gradient, S 22 mm Hg Maximal regurgitant velocity 232 cm/s LEGEND: Mean values are shown as u=mean value. Asterisk (*) toscano values outside specified normal range. Prepared and signed by José Miguel Newman [id number]
[2016-11-19] MEDS: BUDESONIDE-FORMOTEROL 160/4.5 MCG INHALER INH SCH (21:00)
[2016-11-19] MEDS: SODIUM CHLORIDE 0.9% FLUSH 5 ML FLUSH IV FLUSH SCH (21:00)
[2016-11-19] MEDS ORDERED: NOREPINEPHRINE 4 MG/4 ML AMP ONE (21:37)
--- NOTE | 2016-11-19 21:51 | PD.PROCEDR ---
Central Line Procedure REASON FOR PROCEDURE Central venous access PROCEDURE PERFORMED Central line placement: The left internal jugular vein CONSENT Informed consent for procedure was obtained. The risks and benefits of the procedure were discussed to include but limited to bleeding, clot formation, infection, and even . ANESTHESIA Local injection of 1% Lidocaine DESCRIPTION OF THE PROCEDURE The patient was placed in supine, mild Trendelenburg position. The area was exposed and cleansed with ChloraPrep, times two. Large sterile drape was used to cover the patient, with the site exposed, under sterile conditions including cap, face mask, sterile gown, and sterile gloves. On single attempt, the introducer needle was inserted with negative pressure in syringe and venous flash was obtained. The guide wire was then advanced without any restriction and the needle was removed. The dilator was used without any complications. Using Seldinger technique the triple-lumen catheter was advanced over the guide wire to a depth of 20 centimeters. The guide wire was removed. All ports were aspirated with dark venous blood return and flushed easily with sterile saline. All ports were capped. Antibiotic disc was placed around central line at puncture site. The central line was secured to the skin with two interrupted 2.0 silk sutures. The area was bandaged with sterile see-through central line bandage. RADIOLOGICAL DATA Ultrasound guidance was used to locate left internal jugular vein. Doppler/ color flow was used to confirm venous flow. COMPLICATIONS: No apparent complications ESTIMATED BLOOD LOSS: Less than 1 cc. Chip Tello MD Nov 19, 2016 21:51
[2016-11-19] MEDS ORDERED: TERBUTALINE INJ 1 MG/ML AMP SQ PRN (22:00)
[2016-11-19] MEDS ORDERED: NOREPINEPHRINE-DEXTROSE DRIP 250 ML IV SCH (22:00)
[2016-11-19] MEDS: RESP: ALBUTEROL 2.5 MG/IPRATROPIUM 0.5 MG NEB (SCH) NEB (22:12)
--- NOTE | 2016-11-19 22:28 | MB ---
cc: ALEX HANSEN DATE OF CONSULTATION 11/19/2016 REASON FOR CONSULTATION Respiratory failure and sepsis. HISTORY OF PRESENT ILLNESS This is a 61-year-old white female who is overweight and has had a previous history for chronic pain, has been on a pain pump and was brought to the emergency room in a lethargic state and disorientation. The patient has received Narcan since she was suspected to be oversedated with her pain pump. However, the patient was in respiratory failure with a low O2 sat as well as low blood pressure and had to be given IV fluids for hydration, placed on 100% oxygen with a BiPap and now she is more awake and squeezing hands and responding appropriately and answers all questions. She wants her mask off. Denies chest pain. She has a cough. She has wheezing. This patient recently had a pneumonia. She also some cellulitis of her legs which was treated and she was on antibiotics for over 2 weeks. Last week, however, according to the , she was slightly confused and was seen by Dr. Hurst and her muscle relaxants were discontinued. The patient also has been on bronchodilators, but denies any wheezing at this time and she has had no significant fevers or chills, but has been quite drowsy and does have obstructive sleep apnea. PAST HISTORY 1. History of hypertension. 2. Fibromyalgia. 3. History of peripheral neuropathy. 4. Anxiety disorder. 5. History of abdominal surgery for lap band. 6. Cholecystectomy with laparoscopy. 7. She has had a pain pump for her chronic back pain. 8. She has had reactive airways. HABITS The patient does not smoke. No history of alcohol. ALLERGIES SULFA. KEFLEX. ADHESIVES. MEDICATION LIST 1. Dilaudid 1 mg liquid q.4 hours. 2. Lexapro 20 mg daily. 3. Torsemide 20 mg b.i.d. 4. Crestor 20 mg per day. 5. Naloxegol 12.5 mg daily. 6. Synthroid 150 mcg daily. 7. Modafinil 200 mg b.i.d. 8. Lyrica 200 mg b.i.d. 9. Diazepam 10 mg t.i.d. p.r.n. FAMILY HISTORY Noncontributory. SYSTEMS REVIEW The patient is on BiPap mask, unable to respond all questions. She does have some back pain, joint pains and she has anxiety as well as epigastric pains and reflux. Denies urinary symptoms. She has had leg swelling and some skin rash in the upper and lower extremities. PHYSICAL EXAMINATION GENERAL: This moderately obese middle-aged white female is on BiPAP. VITAL SIGNS: Blood pressure 88/60, pulse is 105, respirations 22, temperature 98.2. HEENT: Head normocephalic. Pupils are reactive and equal. Nasal mucosa injected. Throat was also mildly injected. NECK: Supple. No bruits or thyroid enlargement or lymphadenopathy. CHEST: Distant breath sounds with expiratory wheezes bilaterally, prolonged expirations with crackles at the lung bases. HEART: The heart sounds are irregular. S1 and S2 with no murmur, no S3. ABDOMEN: Obese with mild epigastric tenderness. No organomegaly. Bowel sounds are active. EXTREMITIES: No edema. Peripheral pulses are diminished with no calf tenderness. NEUROLOGIC: Homans' sign is negative. Reflexes are 1+ with no gross motor deficits. The patient has a good flagger bilaterally and the skin revealed no lesions. IMPRESSION 1. Acute respiratory failure. 2. Probable sepsis and hypotension. 3. Basilar pneumonia possible. 4. History of reactive airways. 5. Fibromyalgia. 6. Extreme obesity status post lap band. PLAN 1. The patient has been placed on a BiPap mask but will be weaned down to a Ventimask today. 2. We will use nasal cannula oxygen tomorrow but BiPap will be placed back at night. 3. Antibiotic therapy has been started including vancomycin 1250 mg, Levaquin 750 mg daily and this will be continued. 4. Nebulized DuoNeb solution will be added q.i.d. p.r.n. 5. Azactam 2 grams IV q. 8 hours was added as well. 6. Her blood sugars need to be monitored. 7. The patient will have a follow up chest x-ray a.in the a.m. 8. CBC and cultures which are pending. I will follow the case with you Dr. Parmar and Dr. Hurst. Thank you for this consultation. MD VASYL Elizabeth/NAYELY /7:12 PM /10:12 PM
--- NOTE | 2016-11-19 22:43 | RADRPT ---
EXAM DATE/TIME: 11/19/2016 21:48 [facility] COMPARISON: CHEST SINGLE AP, November 19, 2016, 8:44. INDICATIONS : Left sided central line placement. MEDICAL HISTORY : Hypertension. SURGICAL HISTORY : None. ENCOUNTER: Initial ACUITY: 1 day PAIN SCORE: 0/10 LOCATION: Bilateral chest FINDINGS: A single view of the chest demonstrates left IJ line tip in right atrium. Bilateral airspace consolid ation has worsened since exam from earlier today. No significant effusion. No pneumothorax. CONCLUSION: 1. Worsening airspace consolidation since the earlier examination. Left IJ line tip in right atrium Zach Alonso MD on November 19, 2016 at 22:40 Board Certified Radiologist. This report was verified electronically.
[2016-11-20] VITALS (26 sets, daily range): BP systolic 88–127; BP diastolic 49–68; PULSE 66–85; RESP 16–21; TEMP 98.2; O2SAT 95–100
[2016-11-20] MEDS ORDERED: TERBUTALINE INJ 1 MG/ML AMP SQ PRN (00:15)
[2016-11-20] MEDS ORDERED: NOREPINEPHRINE-DEXTROSE DRIP 250 ML IV SCH (00:15)
[2016-11-20] MEDS: AZTREONAM INJ 2,000 MG in SODIUM CHLORIDE 0.9% INJ 100 ML IV SCH ×3 (01:55→17:00)
[2016-11-20] MEDS: INSULIN ASPART SUPPLEMENTAL SCALE SQ SCH ×4 (01:56→18:00)
--- NOTE | 2016-11-20 02:01 | RADRPT ---
EXAM DATE/TIME: 11/20/2016 01:40 [facility] COMPARISON: CHEST SINGLE AP, November 19, 2016, 21:48. INDICATIONS : Shortness of breath, possible pulmonary disease. MEDICAL HISTORY : Hypertension. SURGICAL HISTORY : None. ENCOUNTER: Subsequent ACUITY: 2 days PAIN SCORE: 0/10 LOCATION: Bilateral chest FINDINGS: There is stable bilateral parenchymal consolidation. Left jugular line tip overlies expected location of the right atrium. There is cardiomegaly. Degenerative changes of the spine are seen. CONCLUSION: No significant change has occurred. Jackson Jones MD on November 20, 2016 at 1:59 Board Certified Radiologist. This report was verified electronically.
[2016-11-20] MEDS: CHLORHEXIDINE GLUCONATE 2 % 1 PACK (2 CLOTHS) TOP SCH (04:00)
[2016-11-20] MEDS: metroNIDAZOLE 500 MG INJ 100 ML IV SCH ×3 (04:04→21:05)
[2016-11-20] MEDS: RESP: ALBUTEROL 2.5 MG/IPRATROPIUM 0.5 MG NEB (SCH) NEB ×4 (04:42→21:12)
[2016-11-20 04:58] LABS: AUTOMATED NEUTROPHIL # 9.2 TH/MM3 (1.8-7.7); BASOPHIL % 0.3 % (0.0-2.0); EOSINOPHIL # 0.3 TH/MM3 (0-0.4); EOSINOPHIL % 2.2 % (0.0-4.0); HEMATOCRIT 29.7 % (35.0-46.0); HEMO FLAGS DIFF FINAL; LYMPH % 14.3 % (9.0-44.0); LYMPHOCYTE # 1.8 TH/MM3 (1.0-4.8); MEAN CELL VOLUME 80.2 FL (80.0-100.0); MEAN CORPUSCULAR HEMOGLOBIN 26.5 PG (27.0-34.0); MEAN CORPUSCULAR HGB CONC 33.1 % (32.0-36.0); MONO % 8.9 % (0.0-8.0); NEUT % 74.3 % (16.0-70.0); PLATELET COUNT 104 TH/MM3 (150-450); RED BLOOD COUNT 3.71 MIL/MM3 (4.00-5.30); RED CELL DISTRIBUTION WIDTH 16.5 % (11.6-17.2); WHITE BLOOD COUNT 12.4 TH/MM3 (4.0-11.0)
[2016-11-20 05:22] LABS: BICARBONATE 31.3 MEQ/L (21.0-32.0); CALCIUM-PROTEIN CORRECTED 8.2 MG/DL (8.5-10.1); TOTAL BILIRUBIN ADULT 0.5 MG/DL (0.2-1.0)
--- NOTE | 2016-11-20 05:36 | MB ---
cc: SummerRodrickAYERS,ALEX DATE OF CONSULTATION 11/19/2016 REASON FOR CONSULTATION Sepsis and pneumonia. HISTORY OF PRESENT ILLNESS This is a 61-year-old white female previously known to me with a history of multiple medical problems as well as cough, wheezing, lethargy, was admitted via the emergency room with altered mental status. According to the , she has been disoriented and was very lethargic this morning and EMS was called in and she was given Narcan since he does previously take opioids for chronic pain. The patient had a BiPap placed and she is now better and now on 50% FIO2. The patient has previously been admitted to [facility] for pneumonia just about three weeks ago and treated with antibiotic. Most recent chest x-ray showed some atelectasis at the lung bases. She has had no leg or calf muscle pains but has some numbness in the extremities and she has had a cough as well. There is a prior history of fibromyalgia and a history of chronic pain for which she has a pain pump implanted. PAST MEDICAL HISTORY 1. History for hypertension and she denies any history of diabetes. 2. She has had fibromyalgia. 3. Peripheral neuropathy. 4. Anxiety. 5. Degenerative arthritis. PAST SURGICAL HISTORY Lap cholecystectomy. History of lap band. ALLERGIES SULFA KEFLEX. SYSTEMS REVIEW Patient has gained weight. She has some leg swelling. She has dizzy attacks and sleeplessness. She has wheezing, cough, congestion. Denies abdominal pains or urinary symptoms. PHYSICAL EXAMINATION GENERAL: This is a moderately overweight white female in no acute distress. No pallor or icterus. No lymphadenopathy. No peripheral edema. VITAL SIGNS: Blood pressure is 103/60, pulse is 85, respirations 18, temperature 98.2. HEENT: Head normocephalic. Pupils are reactive and equal. Tongue moist. Throat is injected. Nasal mucosa edematous. NECK: Supple. No bruits, no thyroid enlargement or lymphadenopathy. CHEST: Distant breath sounds and occasional wheezes are scattered bilaterally, prolonged expiration. HEART: The heart sounds are irregular. S1-S2. No murmur. ABDOMEN: Soft, benign. No masses. EXTREMITIES: Varicosities. Minimal edema. NEUROLOGIC: Reflexes are 1+ with no gross motor deficits. Cranial nerves grossly intact. SKIN: No lesions. IMPRESSION 1. Sepsis with basilar pneumonia. 2. COPD and chronic bronchitis. 3. Gastroenteritis. 4. Chronic back pain. PLAN The patient will be started on IV fluids and IV antibiotics which included Zosyn and vancomycin. She will submit a sputum for culture and Gram's stain and nebulized DuoNeb solution added q.i.d. The patient will have a chest x-ray repeated in the a.m. and if it remains stable she will be transferred to the telemetry floor. Thank you Dr. Parmar for this consultation. Alex Schrader MD JSHAWANDA/NAYELY /11:23 PM /5:26 AM
[2016-11-20] MEDS: SODIUM CHLOR 0.9% 1000 ML INJ 1,000 ML IV SCH ×2 (05:58→17:56)
[2016-11-20] MEDS ORDERED: POTASSIUM CHLOR 40 MEQ PREMIX 100 ML IV PRN (07:15)
[2016-11-20] MEDS ORDERED: POTASSIUM PHOSPHATE INJ 30 MMOL in SODIUM CHLOR 0.9% 250 ML INJ 250 ML IV PRN (07:15)
[2016-11-20] MEDS ORDERED: MAGNESIUM SULFATE INJ 2 GM in SODIUM CHLORIDE 0.9% INJ 96 ML IV PRN (07:15)
[2016-11-20] MEDS ORDERED: MAGNESIUM OXIDE 400 MG TAB PO PRN (07:15)
[2016-11-20] MEDS ORDERED: SODIUM PHOSPHATE INJ 30 MMOL in SODIUM CHLOR 0.9% 250 ML INJ 240 ML IV PRN (07:15)
[2016-11-20] MEDS ORDERED: POTASSIUM CHLOR 20 MEQ PREMIX 100 ML IV PRN ×2 (07:15)
[2016-11-20] MEDS ORDERED: POTASSIUM PHOSPHATE MONOBASIC 500 MG TAB PO PRN (07:15)
[2016-11-20] MEDS ORDERED: POTASSIUM PHOSPHATE MONOBASIC 500 MG TAB PO/TUBE PRN (07:15)
[2016-11-20] MEDS ORDERED: MAGNESIUM SULFATE INJ 4 GM in SODIUM CHLORIDE 0.9% INJ 92 ML IV PRN (07:15)
[2016-11-20] MEDS ORDERED: POTASSIUM CL 40 MEQ/30 ML LIQ UDC PO/TUBE PRN ×2 (07:15)
[2016-11-20] MEDS: BUDESONIDE-FORMOTEROL 160/4.5 MCG INHALER INH SCH ×2 (08:53→21:00)
[2016-11-20] MEDS: SODIUM CHLORIDE 0.9% FLUSH 5 ML FLUSH IV FLUSH SCH ×2 (08:54→21:00)
[2016-11-20] MEDS: SODIUM CHLORIDE 0.9% FLUSH 5 ML FLUSH IVF SCH (08:54)
[2016-11-20] MEDS: PANTOPRAZOLE SODIUM 40 MG VIAL IV SCH (09:44)
--- NOTE | 2016-11-20 10:56 | PD.ID.CON ---
History of Present Illness Service Infectious disease Consult Requested By Reason for Consult Evaluation and management of sepsis, pneumonia. Primary Care Physician Kailash Hurst MD Diagnoses: History of Present Illness Ms. Singh is a 61-year-old female with past medical history significant for hypothyroidism, chronic pain who has a pain medication pump in place. She reports that her Narcan from needs to be refilled. Her past medical history is also significant for recurrent pneumonia needing frequent admissions at [facility]. Patient presented to the emergency department by EMS because her tried to wake her up and found her to be disoriented, difficult to arouse. Patient was given Narcan due to history of pain medication pump and this improved her mentation slightly. Patient reports that her last admission to [facility]'s 3 weeks back and she was admitted for 4 days for pneumonia and subsequently discharged. She thinks that [facility] thinks she overdoses on pain medications. Patient reports that since her discharge she has been feeling very lethargic and not herself. She reports that her record clerk is Dr. Michaud. Patient reports seen multiple neurologists for fibromyalgia as well as pain duplication specialist. She reports that her pain duplication specialist at the present time is Dr. Hernandez. On arrival in the ER patient had a temperature of 103 and was extremely encephalopathic. She was placed on a nonrebreather face mask and initiated on empiric antibiotics as her chest x-ray revealed infiltrates and she had an elevated lactic acid. At the time of my evaluation patient is in the emergency room and has received 3 L of fluid bolus at and was on pressors at some point. Patient did not need to be intubated and has been managed on BiPAP patient is currently on a nonrebreather and is doing fairly okay. Patient has been started on aztreonam, vancomycin as well as Levaquin for her pneumonia and currently is afebrile with normal blood pressure. Infectious disease is consulted for evaluation and management of sepsis and pneumonia in a patient is chronic pain syndrome on multiple narcotics as well as sedatives. Review of Systems ROS Limitations: Poor Historian Constitutional: DENIES: Diaphoretic episodes, Fatigue, Fever, Weight gain, Weight loss, Chills, Dizziness, Change in appetite, Night Sweats Endocrine: DENIES: Abnorml menstrual pattern, Heat/cold intolerance, Polydipsia , Polyuria, Polyphagia Eyes: DENIES: Blurred vision, Diplopia, Eye inflammation, Eye pain, Vision loss , Photosensitivity, Double Vision Ears, nose, mouth, throat: DENIES: Tinnitus, Hearing loss, Vertigo, Nasal discharge, Oral lesions, Throat pain, Hoarseness, Ear Pain, Running Nose, Epistaxis, Sinus Pain, Toothache, Odynophagia Respiratory: COMPLAINS OF: Sputum production, Shortness of breath Cardiovascular: DENIES: Chest pain, Palpitations, Syncope, Dyspnea on Exertion , PND, Lower Extremity Edema, Orthopnea, Claudication Gastrointestinal: DENIES: Abdominal pain, Black stools, Bloody stools, Constipation, Diarrhea, Nausea, Vomiting, Difficulty Swallowing, Anorexia Genitourinary: DENIES: Abnormal vaginal bleeding, Dysmenorrhea, Dyspareunia, Sexual dysfunction, Urinary frequency, Urinary incontinence, Urgency, Hematuria , Dysuria, Nocturia, Vaginal discharge Musculoskeletal: DENIES: Joint pain, Muscle aches, Stiffness, Joint Swelling, Back pain, Neck pain Integumentary: DENIES: Abnormal pigmentation, Pruritus, Rash, Nail changes, Breast masses, Breast skin changes, Nipple discharge Hematologic/lymphatic: DENIES: Bruising, Lymphadenopathy Immunologic/allergic: DENIES: Eczema, Urticaria Neurologic: DENIES: Abnormal gait, Headache, Localized weakness, Paresthesias, Seizures, Speech Problems, Tremor, Poor Balance Psychiatric: DENIES: Anxiety, Confusion, Mood changes, Depression, Hallucinations, Agitation, Suicidal Ideation, Homicidal Ideation, Delusions Past Family Social History Allergies: Coded Allergies: Sulfa (Unverified Allergy, Severe, HIVES, 04/11/15) Adhesives (Verified Allergy, Intermediate, Rash, 11/19/16) TEGADERM Keflex (Verified Allergy, Intermediate, Itching, 11/19/16) Past Medical History Hypothyroidism Fibromyalgia Arthritis Neuropathy Anxiety Chronic pain syndrome History of recurrent pneumonia Past Surgical History Lap cholecystectomy Lap band Pain medication pump Lap band port Reported Medications Reported Meds & Active Scripts Active Reported Dilaudid Liq (Hydromorphone HCl) 1 Mg/Ml Liq 1 Mg PO Q4H PRN Dilaudid Liq (Hydromorphone HCl) 1 Mg/Ml Liq 1 Mg PO Q4H PRN Lexapro (Escitalopram Oxalate) 20 Mg Tab 20 Mg PO DAILY Torsemide 20 Mg Tab 20 Mg PO BID Diazepam 10 Mg Tab 10 Mg PO TID PRN Crestor (Rosuvastatin Calcium) 20 Mg Tab 20 Mg PO DAILY Movantik (Naloxegol) 12.5 Mg Tab 12.5 Mg PO DAILY Levothyroxine (Levothyroxine Sodium) 150 Mcg Tab 150 Mcg PO DAILY Modafinil 200 Mg Tab 200 Mg PO BID Lyrica (Pregabalin) 200 Mg Cap 200 Mg PO BID Active Ordered Medications Last Impressions Chest X-Ray 11/20/16 0000 Signed Impressions: Service Date/Time: Sunday, November 20, 2016 01:40 - CONCLUSION: No significant change has occurred. Jackson Jones MD Head CT 11/19/16 0835 Signed Impressions: Service Date/Time: Saturday, November 19, 2016 10:03 - CONCLUSION: Negative exam. Brenton Underwood MD Family History Reviewed and noncontributory to current infectious disease problems. Social History Denies alcohol, denies smoking. Denies any IV drug abuse. Physical Exam Vital Signs Vital Signs Date Time Temp Pulse Resp B/P Pulse Ox O2 Delivery O2 Flow Rate FiO2 11/20/16 08:00 98.2 78 16 101/55 96 Venturi Mask 50 11/20/16 07:45 78 16 107/51 98 Venturi Mask 50 11/20/16 07:28 95 Venturi Mask 50 11/20/16 07:00 83 19 126/58 97 Venturi Mask 50 11/20/16 04:15 79 19 110/53 100 Venturi Mask 50 11/20/16 03:45 80 19 111/53 99 Venturi Mask 50 11/20/16 03:15 66 21 97/53 96 Venturi Mask 50 11/20/16 02:45 78 19 127/68 96 Venturi Mask 50 11/20/16 02:15 72 19 98/50 97 Venturi Mask 50 11/20/16 01:45 74 21 107/52 100 Venturi Mask 50 11/20/16 01:15 80 18 116/55 99 Venturi Mask 50 11/20/16 01:00 85 21 121/52 98 Venturi Mask 50 11/20/16 00:45 78 20 113/62 98 Venturi Mask 50 11/20/16 00:30 80 19 123/59 96 Venturi Mask 50 11/20/16 00:15 82 19 102/58 99 Venturi Mask 50 11/20/16 00:00 81 20 88/53 98 Venturi Mask 50 11/19/16 23:00 74 19 97/53 99 Venturi Mask 50 11/19/16 22:30 76 18 101/58 100 Venturi Mask 50 11/19/16 22:14 98 Nasal Cannula 6.00 50 11/19/16 21:14 75 17 78/46 98 Venturi Mask 50 11/19/16 20:05 81 19 112/55 99 Venturi Mask 50 11/19/16 18:35 76 15 88/52 99 BiPAP 50 11/19/16 17:42 69 14 80/46 100 50 11/19/16 17:00 86 26 105/51 94 BiPAP 50 11/19/16 16:30 80 22 105/59 94 BiPAP 60 11/19/16 15:46 94 50 11/19/16 13:30 82 20 102/55 98 BiPAP 60 11/19/16 13:28 100 60 11/19/16 12:05 98 BiPAP 11/19/16 12:00 91 Non-Rebreather 10.00 100 11/19/16 12:00 94 100 11/19/16 11:49 92 Venturi Mask 6.00 50 11/19/16 11:30 102.2 92 28 96/51 92 Venturi Mask 6 40 11/19/16 11:00 89 21 103/51 98 Non-Rebreather 15 Physical Exam GENERAL: Morbidly obese female patient, in no apparent distress. SKIN: No rashes, ecchymoses or lesions. Cool and dry. HEAD: Atraumatic. Normocephalic. No temporal or scalp tenderness. EYES: Pupils equal round and reactive. Extraocular motions intact. No scleral icterus. No injection or drainage. ENT: Nose without bleeding, purulent drainage or septal hematoma. Throat without erythema, tonsillar hypertrophy or exudate. Uvula midline. Airway patent. NECK: Trachea midline.Supple, nontender, no meningeal signs. CARDIOVASCULAR: Regular rate and rhythm without murmurs, gallops, or rubs. RESPIRATORY: Clear to auscultation. Breath sounds equal bilaterally. No wheezes , rales, or rhonchi. GASTROINTESTINAL: Abdomen soft, non-tender, nondistended. Obese. MUSCULOSKELETAL: Extremities without clubbing, cyanosis, or edema. No joint tenderness, effusion, or edema noted. No calf tenderness. Negative Homans sign bilaterally. NEUROLOGICAL: Awake and alert. Grossly nonfocal. Psych cooperative IV line sites with no evidence of infection. Laboratory Laboratory Tests Test 11/19/16 11/19/16 11/20/16 14:45 17:55 04:24 Lactic Acid Level 2.3 2.5 White Blood Count 12.4 Red Blood Count 3.71 Hemoglobin 9.8 Hematocrit 29.7 Mean Corpuscular Volume 80.2 Mean Corpuscular Hemoglobin 26.5 Mean Corpuscular Hemoglobin 33.1 Concent Red Cell Distribution Width 16.5 Platelet Count 104 Mean Platelet Volume 9.5 Neutrophils (%) (Auto) 74.3 Lymphocytes (%) (Auto) 14.3 Monocytes (%) (Auto) 8.9 Eosinophils (%) (Auto) 2.2 Basophils (%) (Auto) 0.3 Neutrophils # (Auto) 9.2 Lymphocytes # (Auto) 1.8 Monocytes # (Auto) 1.1 Eosinophils # (Auto) 0.3 Basophils # (Auto) 0.0 CBC Comment DIFF FINAL Differential Comment Sodium Level 142 Potassium Level 3.0 Chloride Level 105 Carbon Dioxide Level 31.3 Anion Gap 6 Blood Urea Nitrogen 18 Creatinine 0.71 Estimat Glomerular Filtration 84 Rate Random Glucose 112 Calcium Level 7.2 Protein Corrected Calcium 8.2 Total Bilirubin 0.5 Aspartate Amino Transf 55 (AST/SGOT) Alanine Aminotransferase 21 (ALT/SGPT) Alkaline Phosphatase 63 Total Protein 5.3 Albumin 2.2 Date/Time Procedure Status Source Growth 11/19/16 09:00 Legionella Antigen - Final Complete Urine Catheterized Urine PRESUMPTIVE NEGATIVE FOR LEGIONELLA P... 11/19/16 09:00 Streptococcus pneumoniae Antigen (M - Final Complete Urine Catheterized Urine PRESUMPTIVE NEGATIVE FOR STREPTOCOCCU... 11/19/16 08:55 Aerobic Blood Culture Received Blood Peripheral Pending 11/19/16 08:55 Anaerobic Blood Culture Received Blood Peripheral Pending Result Diagram: 11/20/164 11/20/164 Imaging Last Impressions Chest X-Ray 11/20/16 0000 Signed Impressions: Service Date/Time: Sunday, November 20, 2016 01:40 - CONCLUSION: No significant change has occurred. Jackson Jones MD Head CT 11/19/16 0835 Signed Impressions: Service Date/Time: Saturday, November 19, 2016 10:03 - CONCLUSION: Negative exam. Brenton Underwood MD Assessment and Plan Assessment and Plan Sepsis present on admission. Possible aspiration pneumonia versus community-acquired pneumonia History of recurrent pneumonias likely secondary to aspiration and for excessive chronic narcotic abuse. Hypothyroidism Fibromyalgia Arthritis Neuropathy Anxiety Chronic pain syndrome, pain medication pump Status post laparoscopic cholecystectomy with a port in place Recommendations Continue Zosyn IV Continue vancomycin IV for now if blood cultures remain negative we will likely discontinue vancomycin IV in a.m. Continue Levaquin IV for now Legionella antigen negative Await influenza testing. But suspect this is all aspiration related. We'll de-escalate further in the next day or 2. Gayla Parmar MD Nov 20, 2016 10:56
[2016-11-20] MEDS: ENOXAPARIN SODIUM 40 MG/0.4 ML SYRINGE SQ SCH (11:45)
[2016-11-20] MEDS: RESP: ALBUTEROL 2.5 MG/IPRATROPIUM 0.5 MG NEB (PRN) INH (12:18)
[2016-11-20] MEDS ORDERED: VANCOMYCIN INJ 1,250 MG in SODIUM CHLOR 0.9% 250 ML INJ 250 ML IV SCH (13:00)
[2016-11-20] MEDS: VANCOMYCIN 1,000 MG/NS 250 ML IV SCH ×2 (13:16)
--- NOTE | 2016-11-20 17:34 | EKG ---
Date Performed: 11/19/2016 Time Performed: 08:40:16 PTAGE: 61 years EKG: SINUS TACHYCARDIA POSSIBLE LEFT ATRIAL ENLARGEMENT MODERATE INTRAVENTRICULAR CONDUCTION DEL AY MODERATE ST DEPRESSION Since previous tracing, no significant change noted ABNORMAL ECG PREVIOUS TRACING : 12/09/2014 12.55.18 DOCTOR: Jordan Yadav Interpretating Date/Time 11/20/2016 17:32:41
--- NOTE | 2016-11-20 19:21 | HHI.CCPN ---
Subjective Remarks/Hospital Course 11/19: 61-year-old female with history of chronic pain, pain pump, recent pneumonia, otherwise unknown medical history, presents to the ER today brought in by EMS because her states that he woke up this morning finding her disoriented and difficult to arouse, when EMS got there she was given Narcan due to pain pump, they states that her GCS improved slightly but otherwise, she was still fairly disoriented. Patient's states that she was admitted to [facility] 3 weeks ago and had been admitted for 4 days for pneumonia and had been subsequently discharged. Since her discharge she has been seen by Dr. Schrader her pulmonary physician. Per patient's she has had problems with drowsiness and lethargy for a few months however today she was much worse than usual. She has seen multiple neurologists previously for her fibromyalgia including Dr. Nicole , Dr. Soto and Dr. Mcclain who they no longer wished to see. Patient sees Dr. Hernandez for her Dilaudid pain pump and per patient's she receives prescriptions for hydrocodone though he does not believe she uses a lot. Patient is also on diazepam. On arrival in the ER patient had a temperature of 103 and was extremely encephalopathic. She was placed on a nonrebreather facemask and initiated on empiric antibiotics as her chest x-ray revealed infiltrates and she had an elevated lactic acid. She did receive a liter fluid bolus earlier. When I evaluated the patient she was laying in the ER stretcher was drowsy but easily arousable and actually could converse with me. She knew she was in the hospital however did not know which one. She denied any headache or visual disturbance. She did complain of having a cough of late. Most of the history was obtained from the as patient was still very drowsy. 11/20: A well-developed today. Was transitioned from BiPAP to Ventimask to nasal cannula. Was on Levophed overnight for hypotension however has been off pressors since 11 AM per ER nursing staff. Denies shortness of breath currently remains on nasal cannula. Objective Vital Signs Date Time Temp Pulse Resp B/P Pulse Ox O2 Delivery O2 Flow Rate FiO2 11/20/16 16:33 98.2 11/20/16 14:56 74 16 99/50 96 Nasal Cannula 5 11/20/16 12:20 35 Intake and Output 2/6/17 2/6/17 2/7/17 08:00 16:00 00:00 Output Total 850 ml Balance -850 ml Result Diagram: 11/20/16 0424 11/20/16 0424 Other Results Microbiology Date/Time Procedure Status Source Growth 11/19/16 09:00 Legionella Antigen - Final Complete Urine Catheterized Urine PRESUMPTIVE NEGATIVE FOR LEGIONELLA P... 11/19/16 09:00 Streptococcus pneumoniae Antigen (M - Final Complete Urine Catheterized Urine PRESUMPTIVE NEGATIVE FOR STREPTOCOCCU... 11/20/16 11:10 Influenza Types A,B Antigen (KEMAR) - Final Complete Nasal Washing NEGATIVE FOR FLU A AND B ANTIGEN.... Imaging : CXR(portable): Personally reviewed - bilateral interstitial infiltrates. Last Impressions Head CT 11/19/16 0835 Signed Impressions: Service Date/Time: Saturday, November 19, 2016 10:03 - CONCLUSION: Negative exam. Brenton Underwood MD Objective Remarks Narrative GENERAL: Well-nourished, well-developed middle age white female patient laying in bed, awake and alert SKIN: Warm and dry. HEAD: Normocephalic. EYES: No scleral icterus. No injection or drainage. Pallor present NECK: Supple, trachea midline. CARDIOVASCULAR: Regular rate and rhythm without murmurs, gallops, or rubs. RESPIRATORY: Breath sounds equal bilaterally. No accessory muscle use. Scattered rhonchi/crackles, no wheezing. GASTROINTESTINAL: Abdomen soft, non-tender, nondistended. MUSCULOSKELETAL: No cyanosis, or edema. BACK: Nontender without obvious deformity. No CVA tenderness. Neuro: Awake alert oriented 3, moving all 4 extremities. Speech appears normal. A/P Assessment and Plan 61-year-old female with: Encephalopathy : Probably multifactorial secondary to sepsis/medication including diazepam/narcotics/probable CO2 retention. Sepsis Suspected pneumonia Suspect obstructive sleep apnea syndrome/obesity hypoventilation worsened by sedatives and narcotics Hypotension Hyperlactatemia Hyperglycemia Chronic pain Fibromyalgia Morbid obesity Plan: Neuro: Head CT negative. Suspect multifactorial etiology of encephalopathy including medications/delirium/elevated PCO2. EEG without any seizure activity.. Neuro status improved. Holding hydrocodone and diazepam currently. Cardiovascular: s/p aggressive fluid resuscitation. BNP is not elevated. Suspect infiltrate secondary to pneumonia rather than CHF. Continue maintenance IV fluid, watch for hypotension. Off Levophed which was initiated for hypotension last night after central line placement. Pulmonary: Currently on nasal cannula. BiPAP when necessary. Pulmonary following - Dr. Schrader. Bronchodilators as needed GI/liver: Advance to 1800 ADA diet. Renal/: IV hydration, strict intake output, monitor and replete electro lites , follow BUN/creatinine ID: Follow-up blood cultures. Empiric antibiotic coverage with IV Levaquin/ Azactam/Flagyl/vancomycin. Check nasal washings for influenza A and B. Check urine for strep pneumo and Legionella antigen. We'll obtain discharge summary from recent hospitalization at [facility]. Endocrine: Hyperglycemia noted. Sliding scale insulin for glycemic control. Check hemoglobin A1c. Low TSH noted. Heme: Follow CBC Prophylaxis: PPI/SCDs/Lovenox Discussed current clinical status and plan of care with patient's at bedside worst understanding and was agreeable. If patient remains off pressors overnight, we'll transfer out of ICU in a.m. Consulted Dr. Summer Hurst for medical management in anticipation of transfer out of ICU in AM. Lloyd Parmar MD Nov 20, 2016 19:21
--- NOTE | 2016-11-20 19:54 | HHI.PR ---
Subjective Remarks Feels better. On O2 at 50 % Ventimask. Cough with mild wheezing. No fever. Objective Vital Signs Date Time Temp Pulse Resp B/P Pulse Ox O2 Delivery O2 Flow Rate FiO2 11/20/16 16:33 98.2 11/20/16 14:56 74 16 99/50 96 Nasal Cannula 5 11/20/16 14:10 98 Nasal Cannula 3.00 11/20/16 13:17 84 16 119/56 97 Nasal Cannula 5 11/20/16 12:20 97 Venturi Mask 35 11/20/16 11:23 79 16 99/49 99 Venturi Mask 6 11/20/16 08:00 98.2 78 16 101/55 96 Venturi Mask 50 11/20/16 07:45 78 16 107/51 98 Venturi Mask 50 11/20/16 07:28 95 Venturi Mask 50 11/20/16 07:00 83 19 126/58 97 Venturi Mask 50 11/20/16 04:15 79 19 110/53 100 Venturi Mask 50 11/20/16 03:45 80 19 111/53 99 Venturi Mask 50 11/20/16 03:15 66 21 97/53 96 Venturi Mask 50 11/20/16 02:45 78 19 127/68 96 Venturi Mask 50 11/20/16 02:15 72 19 98/50 97 Venturi Mask 50 11/20/16 01:45 74 21 107/52 100 Venturi Mask 50 11/20/16 01:15 80 18 116/55 99 Venturi Mask 50 11/20/16 01:00 85 21 121/52 98 Venturi Mask 50 11/20/16 00:45 78 20 113/62 98 Venturi Mask 50 11/20/16 00:30 80 19 123/59 96 Venturi Mask 50 11/20/16 00:15 82 19 102/58 99 Venturi Mask 50 11/20/16 00:00 81 20 88/53 98 Venturi Mask 50 11/19/16 23:00 74 19 97/53 99 Venturi Mask 50 11/19/16 22:30 76 18 101/58 100 Venturi Mask 50 11/19/16 22:14 98 Nasal Cannula 6.00 50 11/19/16 21:14 75 17 78/46 98 Venturi Mask 50 11/19/16 20:05 81 19 112/55 99 Venturi Mask 50 I/O 11/19/16 11/19/16 11/19/16 11/20/16 11/20/16 11/20/16 07:00 15:00 23:00 07:00 15:00 23:00 Intake Total 1760 ml Output Total 850 ml 500 ml 700 ml Balance -850 ml 1260 ml -700 ml Intake Oral 360 ml IV Total 1400 ml Output Urine Total 850 ml 500 ml 700 ml # Voids 0 Result Diagram: 11/20/1642311/20/16423 Objective Remarks GENERAL: This is a moderately overweight white female in no acute distress. No pallor or icterus. No lymphadenopathy. No peripheral edema. HEENT: Head normocephalic. Pupils are reactive and equal. Tongue moist. Throat is dry. Nasal mucosa edematous. NECK: Supple. No bruits, no thyroid enlargement or lymphadenopathy. CHEST: Distant breath sounds and occasional wheezes are scattered bilaterally, prolonged expiration. HEART: The heart sounds are irregular. S1-S2. No murmur. ABDOMEN: Soft, benign. No masses. EXTREMITIES: Varicosities. Minimal edema. NEUROLOGIC: Reflexes are 1+ with no gross motor deficits. Cranial nerves grossly intact. SKIN: No lesions. Assessment and Plan Assessment and Plan IMPRESSION 1. Sepsis with basilar pneumonia. 2. COPD and chronic bronchitis. 3. Gastroenteritis. 4. Chronic back pain. 5. Respiratory Failure. 6. KEVIN Plan : 1. Cont Antibiotics per Dr Parmar. 2. Wean O2 to N/C. 3. Start a Diet with liquids. 4. Nebs qid , duoneb. 5. Pain Control with Odd. 6. Chest X ray ,CBC In am. 7. Place on BiPAP at HS 12/5 CM Fio2 , 30 % Ana Lilia Schrader MD Nov 20, 2016 19:54
[2016-11-21] VITALS (14 sets, daily range): BP systolic 119–141; BP diastolic 60–84; PULSE 71–90; RESP 16–20; TEMP 97.9–99; O2SAT 92–100
[2016-11-21] MEDS: VANCOMYCIN 1,000 MG/NS 250 ML IV SCH ×4 (01:10→12:58)
[2016-11-21] MEDS: AZTREONAM INJ 2,000 MG in SODIUM CHLORIDE 0.9% INJ 100 ML IV SCH ×3 (01:10→18:10)
[2016-11-21] MEDS: SODIUM CHLOR 0.9% 1000 ML INJ 1,000 ML IV SCH ×3 (02:57→23:36)
[2016-11-21] MEDS: CHLORHEXIDINE GLUCONATE 2 % 1 PACK (2 CLOTHS) TOP SCH (04:00)
[2016-11-21] MEDS: RESP: ALBUTEROL 2.5 MG/IPRATROPIUM 0.5 MG NEB (SCH) NEB ×4 (04:25→21:12)
[2016-11-21 04:46] LABS: AUTOMATED NEUTROPHIL # 6.9 TH/MM3 (1.8-7.7); BASOPHIL % 0.3 % (0.0-2.0); EOSINOPHIL # 0.5 TH/MM3 (0-0.4); EOSINOPHIL % 5.7 % (0.0-4.0); HEMATOCRIT 29.5 % (35.0-46.0); LYMPH % 15.3 % (9.0-44.0); LYMPHOCYTE # 1.5 TH/MM3 (1.0-4.8); MEAN CELL VOLUME 80.4 FL (80.0-100.0); MEAN CORPUSCULAR HEMOGLOBIN 26.2 PG (27.0-34.0); MEAN CORPUSCULAR HGB CONC 32.6 % (32.0-36.0); MONO % 6.7 % (0.0-8.0); PLATELET COUNT 90 TH/MM3 (150-450); RED BLOOD COUNT 3.67 MIL/MM3 (4.00-5.30); RED CELL DISTRIBUTION WIDTH 17.2 % (11.6-17.2); WHITE BLOOD COUNT 9.6 TH/MM3 (4.0-11.0)
[2016-11-21 04:49] LABS: HEMO FLAGS AUTO DIFF
[2016-11-21 05:07] LABS: ALKALINE PHOSPHATASE 56 U/L (45-117); ALT (GPT) 19 U/L (10-53); ANION GAP 8 MEQ/L (5-15); AST (GOT) 36 U/L (15-37); BICARBONATE 30.3 MEQ/L (21.0-32.0); BLOOD UREA NITROGEN 8 MG/DL (7-18); CHLORIDE 105 MEQ/L (98-107); GLOMERULAR FILTRATION RATE 99 ML/MIN (>89); MAGNESIUM 1.6 MG/DL (1.5-2.5); SODIUM (NA) 143 MEQ/L (136-145); TOTAL BILIRUBIN ADULT 0.4 MG/DL (0.2-1.0)
[2016-11-21 05:18] LABS: POTASSIUM 2.8 MEQ/L (3.5-5.1)
[2016-11-21] MEDS: metroNIDAZOLE 500 MG INJ 100 ML IV SCH ×3 (05:27→21:03)
[2016-11-21] MEDS: POTASSIUM CHLOR 40 MEQ PREMIX 100 ML IV PRN ×2 (05:27→09:06)
[2016-11-21] MEDS: INSULIN ASPART SUPPLEMENTAL SCALE SQ SCH ×5 (05:31→23:39)
[2016-11-21 07:24] LABS: PLATELET ESTIMATE SMEAR LOW (NORMAL); PLATELET MORPHOLOGY NORMAL (NORMAL); SCAN/DIFF AUTO DIFF CONFIRMED
--- NOTE | 2016-11-21 08:24 | PD.CONS ---
History of Present Illness Service INTERNAL MEDICINE Consult Requested By RUCHI PASCUAL M.D. Reason for Consult MEDICAL MANAGEMENT Primary Care Physician MATHEW UHRST M.D. Diagnoses: History of Present Illness Ms. Singh is a 61-year-old female who is currently in the ICU and continues under treatment for sepsis, bilateral pneumonia and respiratory failure. She has shown some favorable response with better air transfer and slightly less oxygen requirement. She is ready to be transferred out of the ICU to a Progressive Care Unit bed. She is being seen for continued medical management. Review of Systems Constitutional: COMPLAINS OF: Fatigue Respiratory: COMPLAINS OF: Cough, Wheezing, Shortness of breath Cardiovascular: COMPLAINS OF: Lower Extremity Edema Neurologic: COMPLAINS OF: Headache Past Family Social History Allergies: Coded Allergies: Sulfa (Unverified Allergy, Severe, HIVES, 04/11/15) Adhesives (Verified Allergy, Intermediate, Rash, 11/19/16) TEGADERM Keflex (Verified Allergy, Intermediate, Itching, 11/19/16) Past Medical History Peripheral Neuropathy. Fibromyalgia. Osteoarthritis. Gastroesophageal Reflux Disease. Anxiety Disorder. Chronic Obstructive Pulmonary Disease. Obstructive Sleep Apnea Syndrome. Oxygen Dependent Respiratory Failure. Past Surgical History Laparoscopic Cholecystectomy. Laparoscopic Band of Stomach. Bilateral Arthroscopic Knee Surgery. Social History She is and lives at home with her . She is of nonsmoking and alcohol intake is extremely rare. Physical Exam Vital Signs Vital Signs Date Time Temp Pulse Resp B/P Pulse Ox O2 Delivery O2 Flow Rate FiO2 11/21/16 08:04 95 Nasal Cannula 3.00 11/21/16 06:00 83 11/21/16 04:00 90 11/21/16 04:00 98.1 90 18 140/64 98 11/21/16 02:00 80 11/21/16 00:00 71 11/21/16 00:00 97.9 71 18 119/60 100 11/20/16 22:00 68 11/20/16 21:13 96 Nasal Cannula 3.00 11/20/16 20:00 74 11/20/16 18:00 83 11/20/16 16:33 98.2 11/20/16 14:56 74 16 99/50 96 Nasal Cannula 5 11/20/16 14:10 98 Nasal Cannula 3.00 11/20/16 13:17 84 16 119/56 97 Nasal Cannula 5 11/20/16 12:20 97 Venturi Mask 35 11/20/16 11:23 79 16 99/49 99 Venturi Mask 6 Physical Exam GENERAL: This is a well-nourished, well-developed patient, in mild distress for breathing. SKIN: No rashes, ecchymoses or lesions. Cool and dry. HEAD: Atraumatic. Normocephalic. No temporal or scalp tenderness. EYES: Pupils equal round and reactive. Extraocular motions intact. No scleral icterus. No injection or drainage. ENT: Nose id mildly congested for both nares. Throat without erythema, tonsillar hypertrophy or exudate. Uvula midline. Airway patent. NECK: Trachea midline. No JVD or lymphadenopathy. Supple, nontender, no meningeal signs. CARDIOVASCULAR: Regular rate and rhythm without murmurs, gallops, or rubs. RESPIRATORY: Bilateral rhonchi to auscultation. Breath sounds equal bilaterally. A few wheezes are noted. No rales. GASTROINTESTINAL: Abdomen soft, non-tender, nondistended. No hepato-splenomegaly , or palpable masses. No guarding. MUSCULOSKELETAL: Extremities without clubbing or cyanosis. There is mild edema of the distal lower extremities. No calf tenderness. Negative Homans sign bilaterally. NEUROLOGICAL: Awake and alert. Cranial nerves II through XII intact. Motor and sensory grossly within normal limits. Five out of 5 muscle strength in all muscle groups. Normal speech. Laboratory Laboratory Tests Test 11/20/16 11/21/16 17:40 04:15 Nasal Screen MRSA (PCR) NEGATIVE White Blood Count 9.6 Red Blood Count 3.67 Hemoglobin 9.6 Hematocrit 29.5 Mean Corpuscular Volume 80.4 Mean Corpuscular Hemoglobin 26.2 Mean Corpuscular Hemoglobin 32.6 Concent Red Cell Distribution Width 17.2 Platelet Count 90 Mean Platelet Volume 9.3 Neutrophils (%) (Auto) 72.0 Lymphocytes (%) (Auto) 15.3 Monocytes (%) (Auto) 6.7 Eosinophils (%) (Auto) 5.7 Basophils (%) (Auto) 0.3 Neutrophils # (Auto) 6.9 Lymphocytes # (Auto) 1.5 Monocytes # (Auto) 0.6 Eosinophils # (Auto) 0.5 Basophils # (Auto) 0.0 CBC Comment AUTO DIFF Differential Comment AUTO DIFF CONFIRMED Platelet Estimate LOW Platelet Morphology Comment NORMAL Sodium Level 143 Potassium Level 2.8 Chloride Level 105 Carbon Dioxide Level 30.3 Anion Gap 8 Blood Urea Nitrogen 8 Creatinine 0.62 Estimat Glomerular Filtration 99 Rate Random Glucose 153 Calcium Level 7.5 Magnesium Level 1.6 Total Bilirubin 0.4 Aspartate Amino Transf 36 (AST/SGOT) Alanine Aminotransferase 19 (ALT/SGPT) Alkaline Phosphatase 56 Total Protein 5.3 Albumin 2.2 Date/Time Procedure Status Source Growth 11/20/16 11:10 Influenza Types A,B Antigen (KEMAR) - Final Complete Nasal Washing NEGATIVE FOR FLU A AND B ANTIGEN.... 11/19/16 09:00 Legionella Antigen - Final Complete Urine Catheterized Urine PRESUMPTIVE NEGATIVE FOR LEGIONELLA P... 11/19/16 09:00 Streptococcus pneumoniae Antigen (M - Final Complete Urine Catheterized Urine PRESUMPTIVE NEGATIVE FOR STREPTOCOCCU... 11/19/16 08:55 Aerobic Blood Culture - Preliminary Resulted Blood Peripheral NO GROWTH IN 1 DAY 11/19/16 08:55 Anaerobic Blood Culture - Preliminary Resulted Blood Peripheral NO GROWTH IN 1 DAY Result Diagram: 11/21/16 0415 11/21/16 0415 Assessment and Plan Assessment and Plan ASSESSMENT 1. Acute Sepsis with Hypotension. 2. Acute Respiratory Failure. 3. Community Acquired Pneumonia. 4. Chronic Obstructive Pulmonary Disease. 5. Obstructive Sleep Apnea Syndrome. 6. Hyperglycemia. 7. Chronic Pain Syndrome. PLAN 1. Continue with close monitoring of intake and output. 2. Blood sugar control to be continued. 3. Follow up laboratory assessment. 4. Intravenous antibiotics as per Infectious Disease. 5. DVT, PE and PUD prophylaxis. Mathew Hurst MD Nov 21, 2016 08:24
[2016-11-21] MEDS: BUDESONIDE-FORMOTEROL 160/4.5 MCG INHALER INH SCH ×2 (09:00→21:00)
[2016-11-21] MEDS: LEVOFLOXACIN 750 MG PREMIX INJ 150 ML IV SCH (09:06)
[2016-11-21] MEDS: PANTOPRAZOLE SODIUM 40 MG VIAL IV SCH (09:06)
[2016-11-21] MEDS: SODIUM CHLORIDE 0.9% FLUSH 5 ML FLUSH IV FLUSH SCH ×2 (09:08→21:04)
[2016-11-21] MEDS: SODIUM CHLORIDE 0.9% FLUSH 5 ML FLUSH IVF SCH (09:08)
[2016-11-21] MEDS: ENOXAPARIN SODIUM 40 MG/0.4 ML SYRINGE SQ SCH (12:00)
[2016-11-21] MEDS ORDERED: PHARMACY ORDERED LAB XX ONE (12:45)
--- NOTE | 2016-11-21 13:05 | HHI.PR ---
Subjective Remarks Feels better. Off O2 and sat 96 No wheezing. No fever. Good output Objective Vital Signs Date Time Temp Pulse Resp B/P Pulse Ox O2 Delivery O2 Flow Rate FiO2 11/21/16 08:04 95 Nasal Cannula 3.00 11/21/16 08:00 98.5 75 16 124/61 98 11/21/16 08:00 75 11/21/16 06:00 83 11/21/16 04:00 90 11/21/16 04:00 98.1 90 18 140/64 98 11/21/16 02:00 80 11/21/16 00:00 71 11/21/16 00:00 97.9 71 18 119/60 100 11/20/16 22:00 68 11/20/16 21:13 96 Nasal Cannula 3.00 11/20/16 20:00 74 11/20/16 18:00 83 11/20/16 16:33 98.2 11/20/16 14:56 74 16 99/50 96 Nasal Cannula 5 11/20/16 14:10 98 Nasal Cannula 3.00 11/20/16 13:17 84 16 119/56 97 Nasal Cannula 5 I/O 11/20/16 11/20/16 11/20/16 11/21/16 11/21/16 11/21/16 07:00 15:00 23:00 07:00 15:00 23:00 Intake Total 1760 ml 1074 ml 1508 ml Output Total 500 ml 700 ml 500 ml 1000 ml Balance 1260 ml -700 ml 574 ml 508 ml Intake Oral 360 ml 480 ml 300 ml IV Total 1400 ml 594 ml 1208 ml Output Urine Total 500 ml 700 ml 500 ml 1000 ml # Voids 0 # Bowel Movements 0 0 Result Diagram: 11/21/16 0415 11/21/16 0415 Objective Remarks GENERAL: This is a moderately overweight white female in no acute distress. No pallor or icterus. No lymphadenopathy. No peripheral edema. HEENT: Head normocephalic. Pupils are reactive and equal. Tongue moist. Throat is dry. Nasal mucosa edematous. NECK: Supple. No bruits, no thyroid enlargement or lymphadenopathy. CHEST: Distant breath sounds and occasional wheezes are scattered bilaterally. HEART: The heart sounds are irregular. S1-S2. No murmur. ABDOMEN: Soft, benign. No masses. EXTREMITIES: Varicosities. Minimal edema. NEUROLOGIC: Reflexes are 1+ with no gross motor deficits. Cranial nerves grossly intact. SKIN: No lesions. Assessment and Plan Assessment and Plan IMPRESSION 1. Sepsis with basilar pneumonia. 2. COPD and chronic bronchitis. 3. Gastroenteritis. 4. Chronic back pain. 5. Respiratory Failure. 6. KEVIN Plan : 1. Cont Antibiotics per Dr Parmar. 2. Wean O2 to RA 3. Start a Diet with liquids. 4. Nebs qid , PRN duoneb. 5. Pain Control with [place]. 6. BMP CBC In am. 7. D/C BiPAP at HS . 8. Transfer to [facility] 9. Flonase [place] , 2 sprays each side daily. Ana Lilia Schrader MD Nov 21, 2016 13:05
[2016-11-21] MEDS: FLUTICASONE PROPIONATE 50 MCG/ACT 16 GM NASAL SPRAY EACH NARE SCH (18:09)
[2016-11-22] VITALS (9 sets, daily range): BP systolic 132–166; BP diastolic 62–92; PULSE 73–85; RESP 16–20; TEMP 97.4–99.1; O2SAT 92–96
[2016-11-22] MEDS ORDERED: PHARMACY ORDERED LAB XX ONE (00:45)
[2016-11-22] MEDS: VANCOMYCIN 1,000 MG/NS 250 ML IV SCH ×2 (01:02)
[2016-11-22] MEDS: AZTREONAM INJ 2,000 MG in SODIUM CHLORIDE 0.9% INJ 100 ML IV SCH ×2 (01:03→09:14)
[2016-11-22] MEDS: CHLORHEXIDINE GLUCONATE 2 % 1 PACK (2 CLOTHS) TOP SCH (04:00)
[2016-11-22] MEDS: metroNIDAZOLE 500 MG INJ 100 ML IV SCH ×2 (04:24→12:27)
[2016-11-22] MEDS: RESP: ALBUTEROL 2.5 MG/IPRATROPIUM 0.5 MG NEB (SCH) NEB ×4 (04:59→21:55)
[2016-11-22] MEDS: INSULIN ASPART SUPPLEMENTAL SCALE SQ SCH ×3 (06:00→17:12)
[2016-11-22] MEDS: metroNIDAZOLE 500 MG TAB PO SCH ×2 (09:13→17:11)
[2016-11-22] MEDS: LEVOFLOXACIN 750 MG PREMIX INJ 150 ML IV SCH (09:13)
[2016-11-22] MEDS: PANTOPRAZOLE SODIUM 40 MG VIAL IV SCH (09:15)
[2016-11-22] MEDS: FLUTICASONE PROPIONATE 50 MCG/ACT 16 GM NASAL SPRAY EACH NARE SCH (09:15)
[2016-11-22] MEDS: SODIUM CHLORIDE 0.9% FLUSH 5 ML FLUSH IV FLUSH SCH ×2 (09:16→20:26)
[2016-11-22] MEDS: SODIUM CHLORIDE 0.9% FLUSH 5 ML FLUSH IVF SCH (09:16)
[2016-11-22] MEDS: SODIUM CHLOR 0.9% 1000 ML INJ 1,000 ML IV SCH ×2 (09:17→17:12)
--- NOTE | 2016-11-22 09:39 | RADRPT ---
EXAM DATE/TIME: 11/22/2016 09:15 [place] COMPARISON: CHEST SINGLE AP, November 20, 2016, 1:40. INDICATIONS : Shortness of breath and chest pain. MEDICAL HISTORY : Hypertension. SURGICAL HISTORY : None. ENCOUNTER: Initial ACUITY: 4 - 6 days PAIN SCORE: 4/10 LOCATION: Bilateral chest FINDINGS: A single AP erect portable view of the chest was obtained and again demonstrates the left internal ju gular central venous line in place. Alveolar opacities remain in both lungs which appear mildly impro tucker. There is mild improved aeration. The heart size remains mildly prominent. There is no effusion. The bony thorax is intact. CONCLUSION: Mild interval improvement in pulmonary infiltrates. Kwesi Pérez MD on November 22, 2016 at 9:35 Board Certified Radiologist. This report was verified electronically.
[2016-11-22] MEDS: BUDESONIDE-FORMOTEROL 160/4.5 MCG INHALER INH SCH ×2 (10:24→20:25)
[2016-11-22] MEDS: ENOXAPARIN SODIUM 40 MG/0.4 ML SYRINGE SQ SCH (12:00)
--- NOTE | 2016-11-22 14:51 | HHI.IDPN ---
Subjective Subjective Remarks Ms. Singh is a 61-year-old female with past medical history significant for hypothyroidism, chronic pain who has a pain medication pump in place. She reports that her Narcan from needs to be refilled. Her past medical history is also significant for recurrent pneumonia needing frequent admissions at [facility]. Patient presented to the emergency department by EMS because her tried to wake her up and found her to be disoriented, difficult to arouse. Patient was given Narcan due to history of pain medication pump and this improved her mentation slightly. Patient reports that her last admission to [facility]'s 3 weeks back and she was admitted for 4 days for pneumonia and subsequently discharged. She thinks that [facility] thinks she overdoses on pain medications. Patient reports that since her discharge she has been feeling very lethargic and not herself. She reports that her underwriting support specialist is Dr. Michaud. Patient reports seen multiple neurologists for fibromyalgia as well as pain coastal and estuary specialist. She reports that her pain coastal and estuary specialist at the present time is Dr. Hernandez. Overnight events reviewed, Wishes to go home. Counseled about her illness and need for ongoing hospital stay to assess improvement. No fever No rash No diarrhea Antibiotics Azactam IV Levaquin IV Vanco IV Lines Line sites with no e/o infection. Past Medical History reviewed Allergies: Coded Allergies: Sulfa (Unverified Allergy, Severe, HIVES, 04/11/15) Adhesives (Verified Allergy, Intermediate, Rash, 11/19/16) TEGADERM Keflex (Verified Allergy, Intermediate, Itching, 11/19/16) Objective . Vital Signs Date Time Temp Pulse Resp B/P Pulse Ox O2 Delivery O2 Flow Rate FiO2 11/22/16 12:09 99.1 77 18 140/64 93 11/22/16 08:59 92 11/22/16 08:00 99.0 77 18 132/62 92 11/22/16 05:02 95 21 11/22/16 04:00 99.0 78 18 161/81 96 11/22/16 00:00 97.6 85 20 166/92 94 11/22/16 00:00 97.6 85 20 166/92 94 11/21/16 22:00 72 11/21/16 21:12 98 21 11/21/16 20:00 99.0 72 20 141/84 92 11/21/16 20:00 72 11/21/16 18:00 72 11/21/16 16:00 75 11/21/16 16:00 98.8 72 20 138/72 92 11/21/16 11/21/16 11/22/16 15:00 23:00 07:00 Intake Total 1793 ml 364 ml 480 ml Output Total 2000 ml 1750 ml Balance -207 ml -1386 ml 480 ml Intake Oral 480 ml IV Total 1673 ml 364 ml Other 120 ml Output Urine Total 2000 ml 1750 ml # Voids 4 # Bowel Movements 1 . Laboratory Tests Test 11/21/16 04:15 White Blood Count 9.6 TH/MM3 Red Blood Count 3.67 MIL/MM3 Hemoglobin 9.6 GM/DL Hematocrit 29.5 % Mean Corpuscular Volume 80.4 FL Mean Corpuscular Hemoglobin 26.2 PG Mean Corpuscular Hemoglobin 32.6 % Concent Red Cell Distribution Width 17.2 % Platelet Count 90 TH/MM3 Mean Platelet Volume 9.3 FL Neutrophils (%) (Auto) 72.0 % Lymphocytes (%) (Auto) 15.3 % Monocytes (%) (Auto) 6.7 % Eosinophils (%) (Auto) 5.7 % Basophils (%) (Auto) 0.3 % Neutrophils # (Auto) 6.9 TH/MM3 Lymphocytes # (Auto) 1.5 TH/MM3 Monocytes # (Auto) 0.6 TH/MM3 Eosinophils # (Auto) 0.5 TH/MM3 Basophils # (Auto) 0.0 TH/MM3 CBC Comment AUTO DIFF Differential Comment AUTO DIFF CONFIRMED Platelet Estimate LOW Platelet Morphology Comment NORMAL Laboratory Tests Test 11/21/16 04:15 Sodium Level 143 MEQ/L Potassium Level 2.8 MEQ/L Chloride Level 105 MEQ/L Carbon Dioxide Level 30.3 MEQ/L Anion Gap 8 MEQ/L Blood Urea Nitrogen 8 MG/DL Creatinine 0.62 MG/DL Estimat Glomerular Filtration 99 ML/MIN Rate Random Glucose 153 MG/DL Calcium Level 7.5 MG/DL Magnesium Level 1.6 MG/DL Total Bilirubin 0.4 MG/DL Aspartate Amino Transf 36 U/L (AST/SGOT) Alanine Aminotransferase 19 U/L (ALT/SGPT) Alkaline Phosphatase 56 U/L Total Protein 5.3 GM/DL Albumin 2.2 GM/DL Microbiology Date/Time Procedure Status Source Growth 11/20/16 11:10 Influenza Types A,B Antigen (KEMAR) - Final Complete Nasal Washing NEGATIVE FOR FLU A AND B ANTIGEN.... Imaging Last Impressions Chest X-Ray 11/22/16 0000 Signed Impressions: Service Date/Time: November 09:15 - CONCLUSION: Mild interval improvement in pulmonary infiltrates. Kwesi Pérez MD Head CT 11/19/16 0835 Signed Impressions: Service Date/Time: Saturday, November 19, 2016 10:03 - CONCLUSION: Negative exam. Brenton Underwood MD Physical Exam GENERAL: Morbidly obese female patient, in no apparent distress. SKIN: No rashes, ecchymoses or lesions. Cool and dry. HEAD: Atraumatic. Normocephalic. No temporal or scalp tenderness. EYES: Pupils equal round and reactive. Extraocular motions intact. No scleral icterus. No injection or drainage. ENT: Nose without bleeding, purulent drainage or septal hematoma. Throat without erythema, tonsillar hypertrophy or exudate. Uvula midline. Airway patent. NECK: Trachea midline.Supple, nontender, no meningeal signs. CARDIOVASCULAR: Regular rate and rhythm without murmurs, gallops, or rubs. RESPIRATORY: Clear to auscultation. Breath sounds equal bilaterally. No wheezes , rales, or rhonchi. GASTROINTESTINAL: Abdomen soft, non-tender, nondistended. Obese. MUSCULOSKELETAL: Extremities without clubbing, cyanosis, or edema. No joint tenderness, effusion, or edema noted. No calf tenderness. Negative Homans sign bilaterally. NEUROLOGICAL: Awake and alert. Grossly nonfocal. Psych cooperative IV line sites with no evidence of infection. Assessment & Plan Remarks Sepsis present on admission. Possible aspiration pneumonia versus community-acquired pneumonia History of recurrent pneumonias likely secondary to aspiration and for excessive chronic narcotic abuse. Hypothyroidism Fibromyalgia Arthritis Neuropathy Anxiety Chronic pain syndrome, pain medication pump Status post laparoscopic cholecystectomy with a port in place Recommendations DC Azactam IV DC Vanco IV DC Levaquin IV DC Flagyl IV DC central line after PIV need assessed. Start Levaquin oral Continue Flagyl oral Recommend a 7 day course of above 2 oral antibiotics. Will sign off please call back if any change in clinical condition or questions. Gayla Parmar MD Nov 22, 2016 14:51
--- NOTE | 2016-11-22 17:46 | HHI.PR ---
Subjective Remarks She is feeling some better today. She reports that she does not feel as short of breath with mild exertion as she did before. She is tolerating all of the current medications well. She was seen by Infectious Disease consult who is quite happy with her progress and has converted her to oral medications. The follow up chest x-ray shows some improvement of the lung infiltrates. Objective Vital Signs Date Time Temp Pulse Resp B/P Pulse Ox O2 Delivery O2 Flow Rate FiO2 11/22/16 16:09 97.9 73 18 139/74 96 11/22/16 12:09 99.1 77 18 140/64 93 11/22/16 08:59 92 11/22/16 08:00 99.0 77 18 132/62 92 11/22/16 05:02 95 21 11/22/16 04:00 99.0 78 18 161/81 96 11/22/16 00:00 97.6 85 20 166/92 94 11/22/16 00:00 97.6 85 20 166/92 94 11/21/16 22:00 72 11/21/16 21:12 98 21 11/21/16 20:00 99.0 72 20 141/84 92 11/21/16 20:00 72 11/21/16 18:00 72 I/O 11/21/16 11/21/16 11/21/16 11/22/16 11/22/16 11/22/16 07:00 15:00 23:00 07:00 15:00 23:00 Intake Total 1508 ml 1793 ml 364 ml 480 ml 240 ml Output Total 1000 ml 2000 ml 1750 ml Balance 508 ml -207 ml -1386 ml 480 ml 240 ml Intake Oral 300 ml 480 ml 240 ml IV Total 1208 ml 1673 ml 364 ml Other 120 ml Output Urine Total 1000 ml 2000 ml 1750 ml # Voids 4 2 # Bowel Movements 0 1 1 Result Diagram: 11/21/165 11/21/16414 Objective Remarks GENERAL: She is alert and appears comfortable lying in bed at rest. SKIN: Warm and dry. HEAD: Normocephalic. EYES: No scleral icterus. No injection or drainage. NECK: Supple, trachea midline. No JVD or lymphadenopathy. CARDIOVASCULAR: Regular rate and rhythm without murmurs, gallops, or rubs. RESPIRATORY: Breath sounds equal bilaterally. There are a few rhonchi with a few wheezes to exam. No accessory muscle use. GASTROINTESTINAL: Abdomen is soft, overweight, non-tender and nondistended. MUSCULOSKELETAL: No cyanosis. There is mild distal leg edema. BACK: Nontender without obvious deformity. No CVA tenderness. Assessment and Plan Assessment and Plan ASSESSMENT 1. Acute Sepsis with Hypotension. 2. Acute Respiratory Failure. 3. Community Acquired Pneumonia. 4. Chronic Obstructive Pulmonary Disease. 5. Obstructive Sleep Apnea Syndrome. 6. Hyperglycemia. 7. Chronic Pain Syndrome. PLAN 1. Continue with close monitoring of intake and output. 2. Blood sugar control to be established. 3. Monitor her oxygenation closely. 4. Intravenous antibiotics as per Infectious Disease. 5. Advance her activity as tolerated. 6. Follow up laboratory assessment. 7. DVT, PE and PUD prophylaxis. Kailash Hurst MD Nov 22, 2016 17:45
--- NOTE | 2016-11-22 19:51 | HHI.PR ---
Subjective Remarks Improved well.. Off O2 and sat 96 No wheezing. No fever. Off IV antibiotics. On PO Levaquin now. Objective Vital Signs Date Time Temp Pulse Resp B/P Pulse Ox O2 Delivery O2 Flow Rate FiO2 11/22/16 16:09 97.9 73 18 139/74 96 11/22/16 12:09 99.1 77 18 140/64 93 11/22/16 08:59 92 11/22/16 08:00 99.0 77 18 132/62 92 11/22/16 05:02 95 21 11/22/16 04:00 99.0 78 18 161/81 96 11/22/16 00:00 97.6 85 20 166/92 94 11/22/16 00:00 97.6 85 20 166/92 94 11/21/16 22:00 72 11/21/16 21:12 98 21 11/21/16 20:00 99.0 72 20 141/84 92 11/21/16 20:00 72 I/O 11/21/16 11/21/16 11/21/16 11/22/16 11/22/16 11/22/16 07:00 15:00 23:00 07:00 15:00 23:00 Intake Total 1508 ml 1793 ml 364 ml 480 ml 240 ml Output Total 1000 ml 2000 ml 1750 ml Balance 508 ml -207 ml -1386 ml 480 ml 240 ml Intake Oral 300 ml 480 ml 240 ml IV Total 1208 ml 1673 ml 364 ml Other 120 ml Output Urine Total 1000 ml 2000 ml 1750 ml # Voids 4 2 1 # Bowel Movements 0 1 1 1 Result Diagram: 11/21/16 0415 11/21/16 0415 Objective Remarks GENERAL: This is a moderately overweight white female in no acute distress. No pallor or icterus. No lymphadenopathy. No peripheral edema. HEENT: Head normocephalic. Pupils are reactive and equal. Tongue moist. Throat is dry. Nasal mucosa clear.. NECK: Supple. No bruits, no thyroid enlargement or lymphadenopathy. CHEST: Distant breath sounds and occasional wheezes are scattered bilaterally. HEART: The heart sounds are irregular. S1-S2. No murmur. ABDOMEN: Soft, benign. No masses. EXTREMITIES: Varicosities. Minimal edema. NEUROLOGIC: Reflexes are 1+ with no gross motor deficits. Cranial nerves grossly intact. SKIN: No lesions. Assessment and Plan Assessment and Plan IMPRESSION 1. Sepsis with basilar pneumonia. 2. COPD and chronic bronchitis. 3. Gastroenteritis. 4. Chronic back pain. 5. Respiratory Failure. 6. KEVIN Plan : 1. Cont Antibiotics per Dr Parmar. 2. Wean O2 to RA 3. Start a Diet with liquids. 4. Nebs qid , PRN duoneb. 5. Pain Control . 6. Home when OK with Dr Hurst 7. D/C BiPAP at . 8. Transfer to [facility] 9. Flonase [place] , 2 sprays each side daily. Ana Lilia Schrader MD Nov 22, 2016 19:50
[2016-11-23] MEDS: metroNIDAZOLE 500 MG TAB PO SCH ×2 (00:27→08:52)
[2016-11-23 00:39] VITALS: BP 147/69; PULSE 61; RESP 18; TEMP 97.9; O2SAT 94
[2016-11-23] MEDS: RESP: ALBUTEROL 2.5 MG/IPRATROPIUM 0.5 MG NEB (SCH) NEB ×2 (03:36→09:28)
[2016-11-23] MEDS: CHLORHEXIDINE GLUCONATE 2 % 1 PACK (2 CLOTHS) TOP SCH (04:00)
[2016-11-23] MEDS: SODIUM CHLOR 0.9% 1000 ML INJ 1,000 ML IV SCH (05:05)
[2016-11-23 05:38] VITALS: BP 167/79; PULSE 74; RESP 18; TEMP 98.1; O2SAT 94
[2016-11-23] MEDS: INSULIN ASPART SUPPLEMENTAL SCALE SQ SCH ×2 (05:41)
[2016-11-23 08:00] VITALS: BP 161/74; PULSE 72; RESP 20; TEMP 98.1; O2SAT 93
--- NOTE | 2016-11-23 08:09 | HHI.PR ---
Subjective Remarks She reports no major new adverse complaints. She is tolerating the medications and treatments well. Objective Vital Signs Date Time Temp Pulse Resp B/P Pulse Ox O2 Delivery O2 Flow Rate FiO2 11/23/16 05:38 98.1 74 18 167/79 94 11/23/16 00:39 97.9 61 18 147/69 94 11/22/16 21:57 96 21 11/22/16 21:26 97.4 73 16 138/71 94 11/22/16 16:09 97.9 73 18 139/74 96 11/22/16 12:09 99.1 77 18 140/64 93 11/22/16 08:59 92 I/O 11/22/16 11/22/16 11/22/16 11/23/16 11/23/16 11/23/16 07:00 15:00 23:00 07:00 15:00 23:00 Intake Total 480 ml 240 ml Balance 480 ml 240 ml Intake Oral 480 ml 240 ml # Voids 4 2 1 2 # Bowel Movements 1 1 1 0 Result Diagram: 11/21/16 0415 11/21/16 0415 Objective Remarks GENERAL: She is alert and appears comfortable lying in bed at rest. SKIN: Warm and dry. HEAD: Normocephalic. EYES: No scleral icterus. No injection or drainage. NECK: Supple, trachea midline. No JVD or lymphadenopathy. CARDIOVASCULAR: Regular rate and rhythm without murmurs, gallops, or rubs. RESPIRATORY: Breath sounds equal bilaterally. There are a few rhonchi with a few wheezes to exam. No accessory muscle use. GASTROINTESTINAL: Abdomen is soft, overweight, non-tender and nondistended. MUSCULOSKELETAL: No cyanosis. There is mild distal leg edema. BACK: Nontender without obvious deformity. No CVA tenderness. Assessment and Plan Assessment and Plan ASSESSMENT 1. Acute Sepsis with Hypotension. 2. Acute Respiratory Failure. 3. Community Acquired Pneumonia. 4. Chronic Obstructive Pulmonary Disease. 5. Obstructive Sleep Apnea Syndrome. 6. Hyperglycemia. 7. Chronic Pain Syndrome. PLAN 1. Continue with the current medication regimen. 2. Continue with the current activity as tolerated. 3. Antibiotics as per Infectious Disease. 4. DVT, PE and PUD prophylaxis. 5. Discharge Planning. Kailash Hurst MD Nov 23, 2016 08:09
[2016-11-23] MEDS ORDERED: SYMB160A INH (08:15)
[2016-11-23] MEDS ORDERED: LEVA500T PO (08:15)
[2016-11-23] MEDS ORDERED: METR-1 PO (08:15)
[2016-11-23 08:20] LABS: AUTOMATED NEUTROPHIL # 3.6 TH/MM3 (1.8-7.7); BASOPHIL % 0.7 % (0.0-2.0); EOSINOPHIL # 0.4 TH/MM3 (0-0.4); EOSINOPHIL % 6.3 % (0.0-4.0); HEMATOCRIT 32.9 % (35.0-46.0); LYMPH % 27.8 % (9.0-44.0); LYMPHOCYTE # 1.9 TH/MM3 (1.0-4.8); MEAN CORPUSCULAR HEMOGLOBIN 25.6 PG (27.0-34.0); MONO % 11.5 % (0.0-8.0); NEUT % 53.7 % (16.0-70.0); PLATELET COUNT 108 TH/MM3 (150-450); RED CELL DISTRIBUTION WIDTH 16.7 % (11.6-17.2); WHITE BLOOD COUNT 6.8 TH/MM3 (4.0-11.0)
[2016-11-23 08:27] LABS: HEMO FLAGS AUTO DIFF
[2016-11-23 08:49] LABS: BICARBONATE 26.3 MEQ/L (21.0-32.0); MAGNESIUM 1.6 MG/DL (1.5-2.5); POTASSIUM 3.6 MEQ/L (3.5-5.1)
[2016-11-23] MEDS: PANTOPRAZOLE SODIUM 40 MG VIAL IV SCH (08:52)
[2016-11-23] MEDS: SODIUM CHLORIDE 0.9% FLUSH 5 ML FLUSH IV FLUSH SCH (08:52)
[2016-11-23] MEDS: SODIUM CHLORIDE 0.9% FLUSH 5 ML FLUSH IVF SCH (08:53)
[2016-11-23] MEDS: BUDESONIDE-FORMOTEROL 160/4.5 MCG INHALER INH SCH (08:53)
[2016-11-23] MEDS: FLUTICASONE PROPIONATE 50 MCG/ACT 16 GM NASAL SPRAY EACH NARE SCH (08:53)
[2016-11-23] MEDS ORDERED: LEVOFLOXACIN 500 MG TAB PO SCH (09:00)
[2016-11-23 09:27] LABS: EOSINOPHILS 9 % (0-4); MYELOCYTES 3 % (0-0); NEUTROPHIL # MANUAL DIFF 4.2 TH/MM3 (1.8-7.7); POLYS (SEG NEUTROPHILS) 59 % (16-70); SCAN/DIFF FINAL DIFF MANUAL; WBC DIFF SAMPLE 100
[2016-11-23 09:28] LABS: PLATELET ESTIMATE SMEAR LOW (NORMAL); PLATELET MORPHOLOGY NORMAL (NORMAL)
== END 2016-11-23 12:11 | disposition home or self-care (01) | DRG 871 ==
LOC: NEPC 08:30 → NEDA 11:06 → NEDH 15:42 → HIMN 11-20 17:20 → N05B 11-21 22:49
PROVIDERS: ADMIT Internal Medicine; ATTEND Internal Medicine
PROC: 05HN33Z Insertion of Infusion Device into Left Internal Jugular Vein, Percutaneous Approach (ICD-10-PCS; principal; 2016-11-19)
PROC: B544ZZA Ultrasonography of Left Jugular Veins, Guidance (ICD-10-PCS; 2016-11-19)
PROC: 5A09457 Assistance with Respiratory Ventilation, 24-96 Consecutive Hours, Continuous Positive Airway Pressure (ICD-10-PCS; 2016-11-19)
DX: A41.9 Sepsis, unspecified organism (principal); J18.9 Pneumonia, unspecified organism; J96.00 Acute respiratory failure, unspecified whether with hypoxia or hypercapnia; G93.40 Encephalopathy, unspecified; J44.0 Chronic obstructive pulmonary disease with (acute) lower respiratory infection; K52.9 Noninfective gastroenteritis and colitis, unspecified; G89.4 Chronic pain syndrome; E03.9 Hypothyroidism, unspecified; M79.7 Fibromyalgia; G62.9 Polyneuropathy, unspecified; E66.01 Morbid (severe) obesity due to excess calories; F11.10 Opioid abuse, uncomplicated; Z87.01 Personal history of pneumonia (recurrent); M19.90 Unspecified osteoarthritis, unspecified site; Z98.84 Bariatric surgery status; E07.9 Disorder of thyroid, unspecified; G47.33 Obstructive sleep apnea (adult) (pediatric); F41.9 Anxiety disorder, unspecified
CPT/HCPCS: 36600; 70450; 71010; 80048; 80053; 80202; 80307; 80320; 81001; 82140; 82805; 82948; 83036; 83605; 83735; 83880; 84443; 84484; 85007; 85025; 85027; 85610; 85730; 87040; 87449; 87641; 87804; 93005; 93306; 94002; 94150; 94640; 95819; 96365; 96375; C9113; J1650; J1815; J1956; J3370; J3475; J3480; J7030; J7040; J7050; P9612